=== PATIENT | male | born 1950 | race Caucasian/White ===

== ENCOUNTER 2020-01-07 07:38 | Outpatient (CLI) | payer MEDICARE, SELFPAY ==
--- NOTE | ~2020-01-07 | CT_ITS ---
EXAMINATION: CT chest abdomen pelvis w con EXAM DATE: 01/07/2020 08:28 INDICATION: Restaging melanoma. TECHNIQUE: Spiral CT of the chest, abdomen and pelvis was performed following intravenous injection o f 100 mL Omnipaque 350. Axial, coronal and sagittal images were reviewed. Coronal maximum intensity pixel images of chest reviewed. The dose-length product (DLP) for this examination was 1764.01 mGy- cm. The exposure was tailored according to patient size (auto mA exposure control), and iterative re construction (ASIR) was used as additional dose reduction technique. Comparison is made to prior exam ination from 10/27/2018. FINDINGS: CHEST: There are right axillary surgical clips from lymph node dissection. The lungs are clear. The re are no pleural or pericardial effusions. Tracheobronchial tree is patent. There is no mediasti nal, hilar or axillary lymphadenopathy. There is no pneumothorax. Heart normal in size. There i s mild coronary arterial calcification, arterial sclerosis. ABDOMEN PELVIS: There is mild hepatic steatosis without suspicious focal lesion identified. Spleen, a drenal glands, pancreas are unremarkable. Gallbladder is unremarkable. No biliary obstruction. Por romel and splenic veins are patent. Kidneys enhance symmetrically. There is no hydronephrosis. There is an exophytic cyst off the lower pole of the left kidney measuring 3.5 cm. The prostate is unremar kable. The bladder is unremarkable. There is no retroperitoneal or pelvic lymphadenopathy. There is mild scattered arteriosclerotic disease. Small left inguinal fat-containing hernia. The appendix is normal. The stomach and small bowel are unremarkable. There is moderate scattered co lonic diverticulosis. There is no adjacent inflammatory change to suggest diverticulitis. No free i ntraperitoneal gas. There are no osteoblastic or osteolytic lesions identified. Right humeral rotat or cuff repair. There is no significant interval change. IMPRESSION: 1. No evidence of malignancy. 2. Colonic diverticulosis. 3. Hepatic steatosis. Reviewed, dictated and finalized at location A.
[2020-01-07 08:17] LABS: Estimated Glomerular Filt Rate > 60
== END 2020-01-07 07:39 | disposition home or self-care (01) ==
LOC: ANHIMG 07:47
PROVIDERS: PCP Internal Medicine Medical Oncology; Visit Provider Internal Medicine Medical Oncology
DX: C43.59 Malignant melanoma of other part of trunk (principal); K57.90 Diverticulosis of intestine, part unspecified, without perforation or abscess without bleeding; K76.0 Fatty (change of) liver, not elsewhere classified
CPT/HCPCS: 36415; 71260; 74177; Q9967

== ENCOUNTER → 2020-03-28 15:10 | Outpatient (CLI) | payer MEDICARE, SELFPAY ==
--- NOTE | ~2020-03-28 | XR_ITS ---
XR ankle RT min 3V 03/28/2020 16:38 Indication: Right ankle pain Procedure: 4 views right ankle Comparison: No prior studies for comparison. Findings: No acute fracture or traumatic malalignment. Ankle mortise intact. There are prominent dege nerative calcaneal enthesophytes. 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 There are focal so ft tissue abnormality. No foreign bodies. Impression: 1: No acute fracture. Reviewed, dictated and finalized at location A. Impression: 1: No acute fracture.
== END ==
PROVIDERS: PCP Family Medicine; Visit Provider Family Medicine
DX: M25.571 Pain in right ankle and joints of right foot (principal)
CPT/HCPCS: 73610

== ENCOUNTER 2020-05-11 10:56 | Emergency (ER) | payer MEDICARE, SELFPAY ==
[2020-05-11] VITALS (11 sets, daily range): BP systolic 116–162; BP diastolic 57–93; PULSE 70–101; RESP 10–18; TEMP 37.3; O2SAT 93–98
--- NOTE | ~2020-05-11 | XR_ITS ---
XR chest 1V portable INDICATION: Redness of breath TECHNIQUE: 2 view chest. FINDINGS: Comparison to multiple prior studies sequentially, with oldest reviewed study dated 2005. There is mild bilateral interstitial prominence and peribronchial cuffing. There is no focal consoli dation, pleural effusion, or pneumothorax. The cardiomediastinal silhouette is normal.] IMPRESSION: 1. Findings most consistent with bronchiolitis versus an atypical or viral pneumonia. Reviewed, dictated and finalized at location A. IMPRESSION: 1. Findings most consistent with bronchiolitis versus an atypical or viral pne [facility].
--- NOTE | ~2020-05-11 | CT_ITS ---
EXAMINATION: CTA chest PE protocol DATE: 05/11/2020 14:20 INDICATION: Elevated d-dimer, pleuritic chest pain. Covid-positive patient. TECHNIQUE: Computed tomography angiography (CTA) of the chest was performed with 100 mL Omnipaque-350 intravenous contrast timed to evaluate the pulmonary arteries. Coronal maximum intensity projection 3D-reconstructions were created by the technologist. Automated exposure control and iterative reconst ruction technique were employed. Exam dose: 855.46 mGy-cm total exam DLP. COMPARISON: 01/19/2020 CT chest abdomen pelvis examination FINDINGS: There is diagnostic contrast enhancement the pulmonary stenosis of pulmonary embolism. No thoracic aortic aneurysm or dissection. Normal heart size. Coronary artery calcifications. No pericardial or pleural effusion. No hilar or mediastinal mass lesion or lymphadenopathy. There are scattered focal patchy areas of groundglass infiltrate involving the left upper lobe and el th lower lobes. The adrenal glands are normal. No suspicious osteolytic or osteoblastic lesions. There are degenerative changes of the cervical and thoracic spine. IMPRESSION: Patchy bilateral infiltrates No evidence of pulmonary embolism Reviewed, dictated and finalized at Location A. Reviewed, dictated and finalized at location A.
--- NOTE | 2020-05-11 11:11 | PC.NURSE ---
EKG done at 11:10 and shown to JEISON at 11:11
--- NOTE | 2020-05-11 11:13 | ECG_ITS ---
Measurements Intervals [place] Rate: 94 P: 49 [place]: 202 QRS: 22 QRSD: 85 T: 42 QT: 318 QTc: 398 Interpretive Statements SINUS RHYTHM DELAYED PRECORDIAL R/S TRANSITION CONSIDER INFERIOR INFARCT, AGE INDETERMINATE BASELINE ARTIFACT- I, III, AVL ABNORMAL ECG Electronically Signed On 05-11-2020 11:49:46 CDT by El Dumont D.O.
--- NOTE | 2020-05-11 11:13 | ED.SOB ---
HPI - SOB/Dyspnea General Chief Complaint: Shortness of Breath/Dyspnea Stated Complaint: COVID Positive, SOB Time Seen by Provider: 05/11/20 11:13 Source: patient Mode of arrival: wheelchair Limitations: no limitations History of Present Illness HPI Narrative: This is a 70-year-old male that presents the emergency department for an episode of lightheadedness today. Reports he was recently diagnosed with COVID. Reports he has had congestion, headache, fever, and cough. Reports his fevers had finally subsided. Today after breakfast when he went to walk up the steps he started to feel lightheaded. Reports pleuritic chest pain. Also reports mild shortness of breath. Denies lower extremity edema. Related Data Home Medications Medication Instructions Recorded Confirmed meloxicam 05/11/20 oxybutynin chloride mg PO 05/11/20 Allergies Allergy/AdvReac Type Severity Reaction Status Date / Time methocarbamol Allergy Severe SYNCOPE, Verified 05/11/20 11:20 RESPIRATORY DISTRESS naproxen Allergy Severe SYNCOPE, Verified 05/11/20 11:20 IN COMBINATION WITH METHOCARBAMOL nabumetone Allergy Unknown RASH Verified 05/11/20 11:20 Review of Systems Review of Systems: Narrative: CONSTITUTIONAL: Denies fever ENT: Reports rhinorrhea, congestion, sore throat CARDIOVASCULAR: Reports chest pain. Denies edema. RESPIRATORY: Reports cough and dyspnea. All systems reviewed & are unremarkable except as noted in HPI and below PMFSH Past Medical History Medical History (Updated 05/11/20 @ 15:45 by Bhumika Maya PA-C) History of malignant melanoma Overactive bladder Social History Social History (Updated 05/11/20 @ 11:58 by Bhumika Maya PA-C) Smoking status: Never smoker Gender identity (if verbalized by the patient): Male Exam Narrative: Exam Narrative: GENERAL: Well-appearing, well-nourished, and in no acute distress. HEAD: Normocephalic, atraumatic. EYES: PERRLA and EOMI. ENT: Nares clear, no rhinorrhea or epistaxis. Mucous membranes moist. Oropharynx without tonsillar hypertrophy exudate or other lesions. Bilateral TMs pearly linton non-bulging NECK: Supple. No adenopathy or masses. CHEST: Clear to auscultation. No respiratory distress. No wheezes rales or rhonchi HEART: Regular rate and rhythm. No murmur heard. Normal peripheral pulses. ABDOMEN: Soft, nontender, nondistended, normal active bowel sounds. EXTREMITIES: Normal range of motion. No edema. SKIN: Warm, dry, no rash. NEURO: No focal deficits. Alert and oriented x3. PSYCH: Normal mood and affect Course Vital Signs Vital signs: Vital Signs Pulse Rate 101 H 05/11/20 11:02 Respiratory Rate 15 05/11/20 11:02 Blood Pressure 162/93 H 05/11/20 11:02 Pulse Oximetry 97 05/11/20 11:02 Temperature 99.1 F 05/11/20 11:09 Pulse Rate 73 05/11/20 13:00 Respiratory Rate 11 L 05/11/20 13:00 Blood Pressure 136/85 05/11/20 14:34 Pulse Oximetry 93 05/11/20 14:34 MDM - SOB/Dyspnea MDM Narrative Medical decision making narrative: Patient presents to the emergency department for an episode of lightheadedness today. Recently had been diagnosed with coronavirus. Patient is afebrile and nontoxic-appearing. His vitals are stable. CBC and metabolic panel without concerning findings. Lactic acid is not elevated. CRP is normal. D-dimer was elevated so CTA of the chest was obtained. No evidence for pulmonary embolism. Patient does have patchy bilateral infiltrates. Patient cautiously hydrated and given Tylenol in the ED with improvement. Oxygen saturation has remained normal on room air. Patient is stable and felt appropriate for further outpatient evaluation. He was given warnings to return to the ER Lab Data Attestation: I reviewed the patient's lab results. Result diagrams: 05/11/20 12:01 05/11/20 12:01 Labs: Lab Results 05/11/20 05/11/20 05/11/20 Range/Units 12:01 12:0
[2020-05-11 12:10] LABS: Basophils Percent Auto 0.3 % (0.2-1.2); Eosinophils Percent Auto 0.3 % (0-4.4); Hematocrit 47.3 % (42.0-52.0); Hemoglobin 16.3 g/dL (14.0-18.0); Immature Granulocyte Absolute 0.01 K/mm3 (0.00-0.031); Immature Granulocyte Percent A 0.2 % (0-0.5); Lymphocytes Absolute Auto 2.15 K/mm3 (0.9-3.2); Lymphocytes Percent Auto 33.8 % (18.3-44.2); Mean Corpuscular HGB Conc 34.5 g/dl (32-36); Mean Corpuscular Hemoglobin 33.1 pg (26-34); Mean Corpuscular Volume 95.9 fl (80-100); Mean Platelet Volume 9.9 fl (7.4-10.4); Monocytes Absolute Auto 0.8 K/mm3 (0.1-0.6); Monocytes Percent Auto 12.9 % (2.6-8.5); Neutrophils Absolute Auto 3.4 K/mm3 (1.3-6.7); Neutrophils Percent Auto 52.5 % (45.5-73.1); Platelet Count Result 173 k/mm3 (150-375); Red Blood Count 4.93 M/mm3 (4.6-6.20); White Blood Count 6.4 K/mm3 (4.5-10.0)
[2020-05-11] MEDS: SODIUM CHLORIDE 0.9% IV 500 ML 999 ML IV CONT ×2 (12:16→14:37)
[2020-05-11 12:19] LABS: Prothrombin Time 12.6 Seconds (11.1-14.7)
[2020-05-11 12:20] LABS: Partial Thromboplastin Time 26.4 SECONDS (22.3-36.8)
[2020-05-11 12:22] LABS: D Dimer 0.56 ug/mL (<0.48); Lactic Acid Reflex 1.7 mmol/L (0.7-2.1)
[2020-05-11 12:23] LABS: Potassium 4.5 mmol/L (3.4-5.0)
[2020-05-11 12:28] LABS: Alanine Aminotransferase 61 U/L (4-50); Albumin Level 4.6 g/dL (3.5-5.1); Alkaline Phosphatase 45 U/L (38-126); Anion Gap 10 mmol/L (8-16); Aspartate Amino Transferase 38 U/L (17-59); Bilirubin,Total 0.5 mg/dL (0.2-1.3); Blood Urea Nitrogen 20 mg/dL (9-20); CRP 0.9 mg/dL (<1.0); Calcium 9.8 mg/dL (8.4-10.2); Carbon Dioxide 29 mmol/L (22-30); Chloride 98 mmol/L (98-107); Estimated CRCL calculation 79 ml/min; Estimated Glomerular Filt Rate > 60; Glucose 117 mg/dL (75-110); Lactate Dehydrogenase 452 U/L (313-618); Sodium 137 mmol/L (137-145)
[2020-05-11 12:35] LABS: NT Pro B Type Natriuretic Pept 21 PG/ML (5-100); Troponin I < 0.012 ng/mL (0.000-0.034)
[2020-05-11] MEDS: ONDANSETRON INJ 4 MG/2 ML VIAL IV PUSH (14:37)
[2020-05-11 15:47] LABS: Troponin I < 0.012 ng/mL (0.000-0.034)
--- NOTE | 2020-05-15 15:48 | PC.NURSE ---
LATE ENTRY This note is being entered to document information to the patient's record. The following information was omitted on 05/13/2020, by [id number] stopped at 1432 by this RN
== END 2020-05-11 16:25 | disposition home or self-care (01) ==
PROVIDERS: Physician Assistant; Emergency Provider Family Medicine; PCP Family Medicine
DX: U07.1 COVID-19 (principal); J12.89 Other viral pneumonia; Z85.820 Personal history of malignant melanoma of skin; N32.81 Overactive bladder; R06.02 Shortness of breath; R94.31 Abnormal electrocardiogram [ECG] [EKG]; Z85.72 Personal history of non-Hodgkin lymphomas
CPT/HCPCS: 36415; 71045; 71275; 80053; 82728; 83605; 83615; 83880; 84484; 85025; 85380; 85610; 85730; 86140; 93005; 96361; 96365; 96375; 99284; J0131; J2405; J7040; Q9967

== ENCOUNTER 2021-01-21 08:53 | Outpatient (CLI) | payer MEDICARE, SELFPAY ==
--- NOTE | ~2021-01-21 | CT_ITS ---
EXAMINATION: CT chest abdomen pelvis w con DATE: 01/21/2021 09:52 INDICATION: Melanoma restaging. TECHNIQUE: Computed tomography (CT) of the chest, abdomen, and pelvis was performed with 100 mL Omnip aque 350 intravenous contrast. Automated exposure control and iterative reconstruction technique were employed. The dose-length product was 1895.84 mGy-cm. COMPARISON: Chest CT 05/11/2020, CT chest, abdomen, and pelvis 01/07/2020 FINDINGS: CHEST CT: There is no pulmonary nodule or pleural effusion. The heart size is normal. There are coronary artery calcifications. No pericardial effusion. There are no pathologically enlarged lymph nodes. There are surgical clips in right axilla. There is a screw in right humerus. ABDOMEN/PELVIS CT: The liver, gallbladder, spleen, pancreas, adrenal glands, and right kidney are normal. There is a 3.9 cm cyst in left kidney. There are no dilated loops of bowel. There is diverticulosis of the colon wi thout evidence of diverticulitis. The appendix is normal. The prostate is mildly enlarged. There is a left inguinal hernia containing fat. There is severe lower lumbar spondylosis. IMPRESSION: 1. No evidence of malignancy. Reviewed, dictated and finalized at location A.
[2021-01-21 09:37] LABS: Estimated Glomerular Filt Rate > 60
== END 2021-01-21 08:54 | disposition home or self-care (01) ==
PROVIDERS: PCP Internal Medicine; Visit Provider Internal Medicine Medical Oncology
DX: C43.59 Malignant melanoma of other part of trunk (principal)
CPT/HCPCS: 71260; 74177; Q9967

== ENCOUNTER 2022-01-15 10:20 | Outpatient (CLI) | payer MEDICARE, SELFPAY ==
--- NOTE | ~2022-01-15 | CT_ITS ---
EXAMINATION: CT chest abdomen pelvis w con DATE: 01/15/2022 10:51 INDICATION: Malignant melanoma of torso; restaging TECHNIQUE: Computed tomography (CT) of the chest, abdomen, and pelvis was performed with 100 CC Omnip aque 300 intravenous contrast. Automated exposure control and iterative reconstruction technique were employed. Exam dose: 1633.40 mGy-cm total exam DLP. COMPARISON: 01/21/2021 CT chest abdomen pelvis FINDINGS: CHEST CT: No pulmonary consolidation. No pulmonary mass lesion. No hilar or mediastinal mass lesion or lymphadenopathy. No thoracic aortic aneurysm or dissection. Normal heart size. No pericardial or pleural effusion. Multiple surgical clips of right anterior chest wall and axilla. Screw in right humeral head. ABDOMEN/PELVIS CT: The liver, gallbladder, bile ducts, spleen, pancreas, pancreatic duct, adrenal glands and kidneys are unremarkable except for 3.7 cm lower pole left renal cyst. There is atherosclerotic calcification but normal caliber of the abdominal aorta. No intraperitoneal or retroperitoneal or pelvic mass lesion or adenopathy or ascites. Normal appendix. There are numerous diverticula of the colon; no evidence of diverticulitis. No bow el obstruction or intraperitoneal free air. Prostate enlargement and calcifications. Small fat containing left inguinal hernia. Small fat containing umbilical hernia. No suspicious osteolytic or osteoblastic lesions. IMPRESSION: No evidence of recurrent or metastatic disease Reviewed, dictated and finalized at Location A. Reviewed, dictated and finalized at location A.
[2022-01-15 10:46] LABS: Estimated Glomerular Filt Rate > 60
== END 2022-01-15 10:21 | disposition home or self-care (01) ==
PROVIDERS: PCP Internal Medicine; Visit Provider Internal Medicine Medical Oncology
DX: C43.59 Malignant melanoma of other part of trunk (principal); K40.90 Unilateral inguinal hernia, without obstruction or gangrene, not specified as recurrent; K42.9 Umbilical hernia without obstruction or gangrene; N40.0 Benign prostatic hyperplasia without lower urinary tract symptoms; I25.10 Atherosclerotic heart disease of native coronary artery without angina pectoris
CPT/HCPCS: 71260; 74177; Q9967

== ENCOUNTER 2022-02-11 09:35 | Outpatient (CLI) | payer MEDICARE, SELFPAY ==
--- NOTE | 2022-02-11 10:56 | ECG_ITS ---
Measurements Intervals [place] Rate: 52 P: 42 [place]: 230 QRS: 30 QRSD: 85 T: 22 QT: 410 QTc: 383 Interpretive Statements SINUS BRADYCARDIA WITH FIRST DEGREE AV BLOCK ABNORMAL ECG Electronically Signed On 02-11-2022 11:10:32 CDT by El Dumont D.O.
[2022-02-11 11:33] LABS: Basophils Absolute Auto 0.1 K/mm3 (0.0-0.1); Basophils Percent Auto 0.9 % (0.2-1.2); Eosinophils Absolute Auto 0.1 K/mm3 (0-0.3); Eosinophils Percent Auto 0.7 % (0-4.4); Hematocrit 41.9 % (42.0-52.0); Hemoglobin 13.7 g/dL (14.0-18.0); Immature Granulocyte Absolute 0.02 K/mm3 (0.00-0.031); Immature Granulocyte Percent A 0.3 % (0-0.5); Lymphocytes Absolute Auto 2.71 K/mm3 (0.9-3.2); Lymphocytes Percent Auto 39.2 % (18.3-44.2); Mean Corpuscular HGB Conc 32.7 g/dl (32-36); Mean Corpuscular Hemoglobin 32.5 pg (26-34); Mean Corpuscular Volume 99.3 fl (80-100); Mean Platelet Volume 10.1 fl (7.4-10.4); Monocytes Absolute Auto 0.7 K/mm3 (0.1-0.6); Monocytes Percent Auto 10.5 % (2.6-8.5); Neutrophils Absolute Auto 3.4 K/mm3 (1.3-6.7); Neutrophils Percent Auto 48.4 % (45.5-73.1); Platelet Count Result 206 k/mm3 (150-375); Red Blood Count 4.22 M/mm3 (4.6-6.20); Red Cell Distribution Width 12.5 % (11.5-14.5); White Blood Count 6.9 K/mm3 (4.5-10.0)
[2022-02-11 11:49] LABS: Albumin Level 4.5 g/dL (3.5-5.1); Anion Gap 5 mmol/L (8-16); Blood Urea Nitrogen 22 mg/dL (9-20); Calcium 9.1 mg/dL (8.4-10.2); Carbon Dioxide 27 mmol/L (22-30); Chloride 104 mmol/L (98-107); Estimated Glomerular Filt Rate > 60; Glucose 96 mg/dL (65-110); Potassium 4.4 mmol/L (3.4-5.0); Sodium 136 mmol/L (137-145)
[2022-02-11 12:34] LABS: Hemoglobin A1C 5.5 % (<5.7)
[2022-02-11 13:14] LABS: Urine Cotinine NEGATIVE
== END 2022-02-11 09:36 | disposition home or self-care (01) ==
LOC: ANHSURGERY 09:40
PROVIDERS: PCP Internal Medicine; Visit Provider Orthopaedic Surgery
DX: Z01.818 Encounter for other preprocedural examination (principal); M17.12 Unilateral primary osteoarthritis, left knee; R94.31 Abnormal electrocardiogram [ECG] [EKG]
CPT/HCPCS: 80048; 80307; 82040; 83036; 85025; 87070; 93005

== ENCOUNTER 2022-03-03 00:18 | Day surgery (SDC) | payer MEDICARE, SELFPAY ==
--- NOTE | 2022-02-11 10:10 | PC.NURSE ---
Addendum entered by Dipti Simpson RN 02/11/22 10:50: PT AWARE TO 20 OZ CLEAR LIQUID UP TO 0430 AM, AND NOT TO TAKE EYE GTTS DOS (PT TAKES @ NOC) Original Note: Report to the Outpatient Waiting Room, entrance under the green pavilion located off [facility], at time _0600_ on date _03/03/22_. OR Time: _0730_. - You and your visitor will be asked a series of questions to screen for COVID 19 for your protection. - Only one visitor is allowed at this time. - The patient visitor is requested to leave or wait in car when not with patient. - A mask is required within the hospital. Patients may have clear liquids (water, carbonated beverages, clear teas, apple juice) until 3 hours prior to surgery (0730 AM ) with a maximum of 20 ounces. - No food from midnight until time of surgery Take the following medications with a SIP of water the morning of surgery: _EYE DROPS_ Medications to discontinue per DR. HALLMAN - ALL ALEVE, VITAMINS AND SUPPLEMENTS 7 DAYS PRIOR TO SURGERY PT STATES, Date to take last dose 02/23/22__ Please no make-up, nail armenian, hairspray, perfume, deodorant, or body powder the day of surgery. No jewelry (including any body piercings) or valuables the day of surgery, leave them at home. Please take a shower or bath the night before, or the morning of, surgery with an antibacterial soap. Wear comfortable, loose fitting clothing. - Jewelry must be removed prior to entering the operating room. Rings and piercings that are not removed may be cut off. - The hospital will not accept responsibility for valuables. - Please leave all valuables, including medications, at home the day of surgery. If you are going home after surgery, a licensed sprinkler driver must drive you home. - NO public transportation without another adult. - We recommend that an adult stay with you for 24 hours following discharge. - We also recommend that you do not drive, make important decision, drink alcoholic beverages, or take any drugs that were not prescribed by your health care provider for at least 24 hours after your discharge time. Follow any additional instructions given to you from your surgeon. TOTAL JOINT CLASS SCHEDULED 02/17/22 @ 1000AM - [facility], USE MAIN ENTRANCE, LOWER LEVEL If you or anyone in your household have experienced Covid symptoms in the past week, please notify your surgeon or the nurse liaison at the phone number below for possible testing. Instructions given to ___PT and asked if any additional questions and then verbalized understanding. Patient advised to call surgeon office or pre surgery nurse liaison [phone] if any additional questions.
[2022-02-11 10:36] VITALS: BP 140/84; PULSE 56; RESP 20; TEMP 36.9; O2SAT 97; BMI 39.2
--- NOTE | 2022-03-02 12:04 | WPDANESEPPF ---
Anes - Initial Pre Proc Eval Procedure: Operation Date: 03/03/22 07:30 Proposed Procedures p Left Total Knee Arthroplasty - Rodolfo Flaherty MD Date/Time: 03/02/22 12:04 Surgeon: Rodolfo Flaherty MD Pre Op Diagnosis: O.A. Left Knee Patient Data Age: 72 Gender: M Height: 1.75 m Weight: 120.5 kg Last Vital Signs Temp 98.4 F 02/11/22 10:36 Pulse 56 L 02/11/22 10:36 Resp 20 02/11/22 10:36 BP 140/84 02/11/22 10:36 Pulse Ox 97 02/11/22 10:36 O2 Del Method Room Air 02/11/22 10:36 Allergies Allergy/AdvReac Type Severity Reaction Status Date / Time methocarbamol Allergy Severe SYNCOPE, Verified 03/03/22 05:58 RESPIRATORY DISTRESS Home Medications Medication Instructions Recorded Confirmed Type ascorbic acid (vitamin C) 1,000 mg 1 g PO DAILY 09/28/21 03/03/22 History tablet cartilage 40 mg-collagen II 10 1 tablet PO DAILY 09/28/21 03/03/22 History mg-boron 5 mg-hyaluronate 3.3 mg tablet ([employer]) cholecalciferol (vitamin D3) 125 125 mcg PO DAILY 09/28/21 03/03/22 History mcg (5,000 unit) capsule coenzyme Q10 200 mg/gram oral 200 mg PO DAILY 09/28/21 03/03/22 History powder (H2Q CoQ10) hctvmjklhbif-qwgybefv-mnruox tablet 1 tablet PO DAILY 09/28/21 03/03/22 History naproxen sodium 220 mg capsule 220 mg PO Q12H PRN Pain 09/28/21 03/03/22 History (Aleve) vit C 250 mg-vit E 90 mg-zinc 40 1 tablet PO DAILY 09/28/21 03/03/22 History mg-copper 1 yn-bohnnr-jizewq capsule (PreserVision AREDS-2) zinc acetate 50 mg (zinc) capsule 50 mg PO DAILY 09/28/21 03/03/22 History (Galzin) atorvastatin 20 mg tablet 20 mg PO QAM 02/11/22 03/03/22 History latanoprost 0.005 % eye drops 1 drp HS 02/11/22 03/03/22 History magnesium 200 mg tablet 400 mg PO DAILY 02/11/22 03/03/22 History Patient hx anesthesia problems: post op nausea/vomiting Family hx anesthesia problems: none Results Review: All pre-operative results and documents have been reviewed as part of the pre-operative evaluation. [facility], LAT[facility] Past Medical History Medical History (Updated 03/02/22 @ 12:04 by Tyrel Lopez MD) Arthritis COVID-19 History of malignant melanoma Hyperlipidemia Overactive bladder Social History Social History Smoking status: Never smoker Second hand tobacco smoke exposure: No Additional smoking assessment comments: PT DENIES ALL FORMS OF TOBACCO USE Alcohol intake: never Substance use: never Substance use type: does not use Living arrangements: with family Gender identity (if verbalized by the patient): Male Spiritual care concerns: No Anes - Eval Final PreProcedure Day of Procedure 03/02/22 12:04 Patient weight: obese Heart: regular rate and rhythm Lungs: clear to auscultation Airway: Mallampati scale class III Neurological: alert and oriented Last oral intake: >/= 8 hours ASA classification: III Emergent: no Anesthetic plan: proceed Anesthesia type and monitoring: general LMA and standard monitoring Results Review: All pre-operative results and documents have been reviewed as part of the pre-operative evaluation. Informed Consent: The patient's anesthetic plan and its attendant risks and benefits were discussed with the patient/family/POA. Questions were solicited and answers provided to the satisfaction of the patient/family/POA.
[2022-03-03] VITALS (14 sets, daily range): BP systolic 97–144; BP diastolic 54–88; PULSE 53–81; RESP 12–18; TEMP 36.4–37; O2SAT 98–100
--- NOTE | ~2022-03-03 | XR_ITS ---
EXAMINATION: XR knee LT 2V DATE: 03/03/2022 11:59 INDICATION: Left knee arthroplasty. Postop. TECHNIQUE: 2 views of left knee were obtained. COMPARISON: Left knee radiographs 01/12/2019 FINDINGS: There is a total left knee arthroplasty with patellar resurfacing in near-anatomic alignmen t. No fracture. There is gas in the knee joint and soft tissues, consistent with recent surgery. IMPRESSION: 1. Total left knee arthroplasty in near-anatomic alignment. Reviewed, dictated and finalized at location A.
[2022-03-03] MEDS: ACETAMINOPHEN 500 MG TABLET 1000 MG PO ×4 (06:03→23:57)
[2022-03-03] MEDS: LACTATED RINGERS 1,000 ML 30 ML IV CONT ×2 (06:39→11:41)
--- NOTE | 2022-03-03 06:56 | SUR.PREOP ---
Patient has an area left ankle that is reddened. Nofied Dr Flaherty. Says if it's not tender we will proceed. No tenderness to this area.
[2022-03-03] MEDS: TRANEXAMIC ACID 1,000MG/ISO100 1,000 MG/100 ML BAG 200 MG IVPB (06:59)
--- NOTE | 2022-03-03 07:19 | WPDHPUPDATE1 ---
History and Physical Update Update Date/Time: 03/03/22 07:19 History and Physical has been reviewed, including an updated exam of the patient. There are NO changes in the patient's condition. Risks, benefits, and alternatives have been discussed and questions answered. Patient agrees to proceed with procedure.Pt denies allery to Naprosyn(takes aleeve) or any other NSAID.
[2022-03-03] MEDS: ceFAZolin 3 GM/D5W 100 ML 100 ML IVPB (07:31)
[2022-03-03] MEDS: ceFAZolin SODIUM 1 GM VIAL 3 GM (08:27)
[2022-03-03] MEDS: GENTAMICIN BONE CEMENT REFOBACIN 1 EACH TOPICAL (09:15)
[2022-03-03] MEDS: ceFAZolin SODIUM 1 GM VIAL 2 GM IV PUSH (10:27)
[2022-03-03] MEDS: TRANEXAMIC ACID 1,000 MG/10 ML AMPUL 1000 MG IV PUSH (10:27)
[2022-03-03] MEDS: KETOROLAC 15 MG/ML VIAL (*BKC) IV PUSH (10:46)
--- NOTE | 2022-03-03 11:29 | W.PM.PROC2 ---
Procedure Note - Detailed Date of Procedure 03/03/22 Pre-op Diagnosis O.A. Left Knee Post-op Diagnosis Same Procedure Performed LEFT TOTAL KNEE REPLACEMENT Surgeon Rodolfo Flaherty MD [employer] Armida Davis Description of Procedure There was extra difficulty with the procedure because of his obesity with BMI of 38.7 which added approximately 45 minutes operating time to the procedure. Patient was brought to the operating room and general anesthesia was administered. He received 2 g of Ancef weight based vancomycin 1 g of tranexamic acid preoperatively. Left knee was prepped draped usual fashion. Under anesthesia he had approximately 7-10 degree flexion contracture. He had flexion 120. Limb was exsanguinated tourniquet elevated to 300 mmHg. A 7 in longitudinal midline incision was used a vastus medialis splitting approach utilized splitting the vastus medialis at the superior pole of the patella. Infrapatellar and suprapatellar fat pads were excised and a quadriceps synovectomy carried out. The patella was arthritic. It measured 23.5 mm diameter was cut to 15.5 mm. Bone quality was excellent. Protector cap applied. A guide sydney was inserted down the femoral canal after aspiration of canal contents using the 5 degree valgus cutting bushing 9 mm of bone removed off the distal femur. This removed equal amounts medially and laterally. Next the tibial plateau was cut. We attempted to make a skim cut off the low point medial tibial plateau given his minimal tibial slope posteriorly. This was performed. Meniscal remnants were excised the PCL was recessed. A conservative posterior capsule release was performed centrally at this time. Flexion gap was too tight medially and laterally measuring about 6 and 8 respectively at 90?. Therefore an additional 2 mm of bone removed the distal femur. With this the flexion gap medially was a tight 8 mm laterally tight 10 mm. A sizing guide was applied to the femur at 4? of external rotation which matched Whitesides line. Posterior referencing pinholes were placed and the size 6 7.5 cutting block applied AP and chamfer cuts were made. This was the appropriate size medial to lateral. The tibia was sized to a 75 [employer]. This was set at proper rotation and punched. On trialing flexion gap add appropriate stability with a 12 insert. With a 10 insert we had a slight flexion contracture but play medially laterally. Posterior femoral osteophyte medially had been removed earlier were there was a fairly significant accumulation of posterior bone proximal that medial femoral condyle and we performed a more thorough posterior capsular release this time. Additional 2 mm of bone removed the distal femur. Tourniquet was released at 90 minutes. Chamfer cuts were revisited. Posterior femoral bone proximal to the condylar portion of the trial was removed at this time. On trialing now with a 12 insert the knee had a barely positive bounce. There is 2 mm of medial and lateral opening in this position. There was appropriate stability in all positions. The trial implants removed and we carefully sought for additional retained tight posterior capsule and laterally there was a little bit more capsule released from the femur medial to the insertion of the lateral head of gastrocnemius tendon. We trialed again and this time the knee came out to full extension with negative bounce 2 mm medial and lateral opening again the lug holes were drilled in the femur. Patella was sized to a 34 thin lug holes drilled this restored composite thickness to 23.5 mm. Patellar tracking was central throughout range of motion. The limb was re-exsanguinated tourniquet elevated 3 0 mmHg. Step drill was 8 used to make multiple perforations throughout the tibial plateau and distal femur as is bone was quite dense the bony surfaces were very rarely irrigated and dried. Using 2 batches of methylmethacrylate 1 of the gentamicin powder the cement was immedi
[2022-03-03] MEDS: fentaNYL CITRATE INJ (*CRX) 100 MCG/2 ML VIAL 25 MCG IV PUSH ×4 (11:51→12:27)
--- NOTE | 2022-03-03 13:48 | ADMGEN ---
This patient, Jason Urbano, was admitted to Medical Room 246-01. Patient/family oriented to hospital policies and general routines including ID bracelet, bed and alarms, visiting hours, pain management, procedures, bathroom and other care routines, personal items, smoking policy, room service/diet, and visiting hours. Information on how to activate the Rapid Response Team has been discussed. Patient/Family are encouraged to report perceived risks to care and to ask questions if they do not understand what they are told or what they should do.
[2022-03-03] MEDS: SODIUM CHLORIDE 0.9% IV 1,000 ML 125 ML IV CONT (14:04)
[2022-03-03] MEDS: SENNA/DOCUSATE SODIUM TABLET 2 TAB PO (17:09)
[2022-03-03] MEDS: oxyCODONE HCL (*CRX) 5 MG TAB IR PO ×2 (17:10→21:29)
[2022-03-03] MEDS: LATANOPROST 0.005% OP SOLN 2.5 ML BTL 1 DROP EACH EYE (21:29)
--- NOTE | 2022-03-03 23:17 | PM.IMCN ---
Assessment and Plan Assessment and plan (1) Status post total left knee replacement: Onset Date: 03/03/22 Code(s): Z96.652 - Presence of left artificial knee joint Status: Acute (2) Obesity: Code(s): E66.9 - Obesity, unspecified Status: Acute Plan Patient is doing well postoperatively. Postop management per primary service. DVT prophylaxis per primary service. Patient does have chronic obesity but has been making good strides on weight loss through diet and he is hopeful that he will continue to lose weight now that he can be more active. Patient does have hyperlipidemia and history of malignant melanoma but these conditions are stable and require no active medical management inpatient. Patient is being continued on his home statin therapy. Hospitalist service will sign off. HPI Data of Consult Consult date: 03/03/22 Requesting Physician: Rodolfo Flaherty MD Primary Care Provider: Stanley Cotton DO Consult Narrative Narrative: Jason Urbano is a 72 year old male with a past medical history of obesity, stage III malignant melanoma, and hyperlipidemia who presented to hospital for planned left total knee arthroplasty. The patient reports he has been having pain in the left knee since proximally 2017. He was considering surgery for his knee in spring but did not have it performed due to COVID. Throughout that time. His functional status has progressively to declined despite other conservative measures. He opted for total knee arthroplasty. Postoperatively the patient has been up to the chair without difficulty. He reports minimal pain in his knee and states that he feels less pain postoperatively than he did preoperatively with movement. He states that he has lifted his leg from the bed without pain which is a significant improvement compared to baseline. He has been urinating without difficulty since surgery. He had no greater than expected blood loss intraoperatively. He denies any shortness of breath, chest pain or palpitations. Overall he feels well and is in jovial spirits. He reports that he has had difficulty with concentration and some memory decline since his interferon treatments for his malignant melanoma in 2011 which resulted in him retiring. He reports that his memory is been stable since that time. He does have chronic peripheral neuropathy as a result of his treatments. He has history of chronic obesity. He reports that his highest weight was 307. He has been eating the [facility] diet and is got down to his current weight. He is hopeful that since his knee pain has improved postoperatively that he will be able to take more weight off when he is discharged home. He does report a history of opiate induced constipation in the past. His last bowel movement was yesterday. Review of Systems Review of Systems: 12 systems were reviewed with pertinent positives and negatives per HPI. Except as documented in the HPI, all other systems were reviewed and are negative. 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 Hyperlipidemia Lymphedema of right upper extremity Due to axillary metastases Obesity Osteoarthritis of knee Overactive bladder Peripheral neuropathy due to chemotherapy Surgical History Surgical History (Updated 03/03/22 @ 23:31 by Radha Pat DO) History of arthroscopy of both knees History of carpal tunnel release Right History of circumcision (~2020) History of colonoscopy with polypectomy History of repair of left rotator cuff History of repair of right rotator cuff Status post total left knee replacement (03/03/22) Family History Family History Fat
[2022-03-04] MEDS: oxyCODONE HCL (*CRX) 5 MG TAB IR PO ×4 (00:36→12:18)
[2022-03-04 00:40] VITALS: BP 117/56; PULSE 58; RESP 18; TEMP 36.3; O2SAT 97
[2022-03-04 03:18] VITALS: BP 114/57; PULSE 67; RESP 18; TEMP 36.8; O2SAT 98
[2022-03-04] MEDS: ACETAMINOPHEN 500 MG TABLET 1000 MG PO ×2 (06:06→12:18)
[2022-03-04 06:37] LABS: Basophils Percent Auto 0.1 % (0.2-1.2); Hematocrit 37.1 % (42.0-52.0); Hemoglobin 12.3 g/dL (14.0-18.0); Immature Granulocyte Absolute 0.07 K/mm3 (0.00-0.031); Immature Granulocyte Percent A 0.5 % (0-0.5); Lymphocytes Absolute Auto 2.06 K/mm3 (0.9-3.2); Lymphocytes Percent Auto 13.3 % (18.3-44.2); Mean Corpuscular HGB Conc 33.2 g/dl (32-36); Mean Corpuscular Hemoglobin 33.2 pg (26-34); Mean Platelet Volume 10.6 fl (7.4-10.4); Monocytes Absolute Auto 1.8 K/mm3 (0.1-0.6); Monocytes Percent Auto 11.7 % (2.6-8.5); Neutrophils Absolute Auto 11.6 K/mm3 (1.3-6.7); Neutrophils Percent Auto 74.4 % (45.5-73.1); Platelet Count Result 196 k/mm3 (150-375); Red Blood Count 3.71 M/mm3 (4.6-6.20); Red Cell Distribution Width 12.2 % (11.5-14.5); White Blood Count 15.5 K/mm3 (4.5-10.0)
[2022-03-04 06:49] LABS: Anion Gap 8 mmol/L (8-16); Blood Urea Nitrogen 17 mg/dL (9-20); Calcium 9.1 mg/dL (8.4-10.2); Carbon Dioxide 24 mmol/L (22-30); Chloride 101 mmol/L (98-107); Estimated CRCL calculation 95 ml/min; Estimated Glomerular Filt Rate > 60; Glucose 133 mg/dL (65-110); Sodium 133 mmol/L (137-145)
--- NOTE | 2022-03-04 07:13 | PM.PNORT ---
Subjective Subjective Date/Time Seen: 03/04/22 07:13 postop day 1 patient is alert. Afebrile vital signs are stable. His soft tissue block wore off overnight he is having a little bit increased pain this morning. It is tolerable pain. He has been up to the restroom multiple times overnight. He was up in the chair this morning. His dressing is dry. Neurovascularly he is intact. Morning labs have been noted. Overall patient is doing well and stable. We will have him work with physical therapy today as well as this afternoon and if he continues to do well we will plan to discharge him home this afternoon after 2nd therapy session and as well as his antibiotics are done. Objective Data Vital Signs Vital Signs: Vital Signs - 24 hr 03/03/22 11:41 03/03/22 11:55 03/03/22 12:10 Temperature 37.0 C Pulse Rate 81 69 66 Respiratory Rate 12 15 17 Blood Pressure 133/73 117/88 131/63 Pulse Oximetry 99 100 100 Oxygen Delivery Simple Face Mask Simple Face Mask Simple Face Mask Oxygen Flow Rate 10 10 10 03/03/22 12:25 03/03/22 12:40 03/03/22 12:55 Temperature Pulse Rate 72 60 61 Respiratory Rate 16 14 16 Blood Pressure 144/69 H 126/66 135/66 Pulse Oximetry 99 100 99 Oxygen Delivery Room Air Room Air Room Air Oxygen Flow Rate 03/03/22 13:10 03/03/22 13:25 03/03/22 14:00 Temperature Pulse Rate 62 61 Respiratory Rate 18 15 Blood Pressure 124/74 124/77 Pulse Oximetry 99 100 Oxygen Delivery Room Air Room Air Room Air Oxygen Flow Rate 03/03/22 13:40 03/03/22 13:55 03/03/22 15:25 Temperature 36.5 C 36.5 C 36.6 C Pulse Rate 59 L 58 L 66 Respiratory Rate 14 16 16 Blood Pressure 97/60 L 131/72 128/71 Pulse Oximetry 100 98 98 Oxygen Delivery Oxygen Flow Rate 03/03/22 16:37 03/03/22 20:00 03/03/22 20:00 Temperature 36.4 C 36.8 C Pulse Rate 64 67 Respiratory Rate 18 18 Blood Pressure 134/87 135/54 L Pulse Oximetry 98 100 Oxygen Delivery Room Air Oxygen Flow Rate 03/04/22 00:40 03/04/22 03:18 Temperature 36.3 C L 36.8 C Pulse Rate 58 L 67 Respiratory Rate 18 18 Blood Pressure 117/56 L 114/57 L Pulse Oximetry 97 98 Oxygen Delivery Oxygen Flow Rate Intake/Output Intake/Output: Intake & Output 03/01/22 03/02/22 03/03/22 03/04/22 23:59 23:59 23:59 23:59 Intake Total 1640 100 Balance 1640 100 Meds/Results Medications: Active Medications Generic Name Dose Route Start Last Admin Trade Name Freq PRN Reason Stop Dose Admin Acetaminophen 1,000 mg 03/03/22 12:00 03/04/22 06:06 Acetaminophen 500 Mg Tablet PO 1,000 mg Q6HR ATILIO Administration Apixaban 2.5 mg 03/04/22 09:00 Apixaban 2.5 Mg Tablet PO Q12HR [facility] Ascorbic Acid 1,000 mg 03/04/22 09:00 Ascorbic Acid 500 Mg Tablet PO DAILY [facility] Atorvastatin Calcium 20 mg 03/04/22 09:00 Atorvastatin 20 Mg Tablet PO QAM [facility] Celecoxib 200 mg 03/04/22 08:00 Celecoxib 200 Mg Capsule PO DAILY@0800 [facility] Cephalexin HCl 500 mg 03/04/22 12:00 Cephalexin 500 Mg Capsule PO Q6HR [facility] Vancomycin HCl 1,000 mg in 250 mls @ 250 mls/hr 03/03/22 19:00 03/04/22 06:31 Vancomycin 1,000 Mg/D5w 250 Ml IVPB 03/04/22 07:59 250 mls/hr Q12H ATILIO Administration Cefazolin Sodium 1 gm in 50 mls @ 100 mls/hr 03/03/22 15:00 03/04/22 06:37 Ancef 1 Gm/D5w 50 Ml Pm IVPB 03/04/22 07:29 Infused Q8H [facility] Infusion Latanoprost 1 drop 03/03/22 21:00 03/03/22 21:29 Latanoprost 0.005% Op Soln 2.5 Ml Btl EACH EYE 1 drop HS ATILIO Administration Magnesium Oxide 400 mg 03/04/22 09:00 Magnesium Oxide 400 Mg Tablet PO DAILY [facility] Morphine Sulfate 2 mg 03/03/22 13:33 Morphine Sulfate (*Crx) 2 Mg/Ml Inj IV PUSH Q1H PRN Pain Rated 7-10 Naloxone HCl 0.1 mg 03/03/22 13:33 Naloxone Hcl 0.4 Mg/Ml Vial IV PUSH Q2M PRN Opiate Reversal Oxycodone HCl 5 mg 03/03/22 17:00 03/04/22 06:07 Oxycodone Hcl (*Crx) 5 Mg Tab Ir PO
--- NOTE | 2022-03-04 07:18 | PM.DS ---
DS: Admitting Diagnosis Discharge Date 03/04 Admitting Diagnosis Left knee DJD DS: Discharge Diagnosis Discharge Diagnosis Plan 72-year-old male who underwent left total knee arthroplasty on 03/03. Under with the procedure without complications. Postoperatively he has been afebrile vital signs are stable. Neurovascularly he is intact. He was up overnight today of surgery to the restroom multiple times. He is on scheduled Tylenol as well as oxycodone 5 mg pain control. He is also on Celebrex 200 mg once a day. Patient is weight-bearing as tolerated. He is going to work with physical therapy postop day 1 if he continues to be doing well he will be discharged home later that date on 03/04. Go home on a course of Keflex. He is also on Eliquis for DVT prophylaxis will also get MiraLax and Senokot for constipation. Patient was advised to keep leg elevated at home with foot higher than heart to prevent swelling in the knee but to do his exercises on an hourly basis. His outpatient therapy starting next Tuesday. Patient was also advised not to sit in the chair more than 30 minutes at a time 4 times a day. He was advised if he has any questions or concerns he is to call the office otherwise we will see him at his appointment dates. DS: Summary Hospital Course Hospital Course: Stable Time Spent with Patient Time attestation: Total time spent providing and/or coordinating discharge services: DS: Data Data Completed and Pending Labs on day of discharge: Labs from last 24 hours 03/04/22 03/04/22 03/03/22 05:40 05:40 06:25 WBC 15.5 H RBC 3.71 L Hgb 12.3 L Hct 37.1 L MCV 100.0 MCH 33.2 MCHC 33.2 RDW 12.2 Plt Count 196 MPV 10.6 H Immature Gran % (Auto) 0.5 Neut % (Auto) 74.4 H Lymph % (Auto) 13.3 L [place] % (Auto) 11.7 H Eos % (Auto) 0.0 Baso % (Auto) 0.1 L Lymph # (Auto) 2.06 [place] # (Auto) 1.8 H Eos # (Auto) 0.0 Baso # (Auto) 0.0 Abs Immat Gran (auto) 0.07 H Absolute Neuts (auto) 11.6 H Absolute Nucleated RBC 0.0 Nucleated RBC % 0.0 Sodium 133 L Potassium 4.0 Chloride 101 Carbon Dioxide 24 Anion Gap 8 BUN 17 Creatinine 0.80 Estim Creat Clear Calc 95 Estimated GFR > 60 Glucose 133 H Calcium 9.1 Blood Type A Positive Antibody Screen Negative Discharge Plan Discharge Patient Disposition: Home, Self-Care Discharge Instructions: RODOLFO FLAHERTY [facility], [place] [id number] [place] [id number] POST-OPERATIVE DISCHARGE INSTRUCTIONS TOTAL KNEE ARTHROPLASTY 1. When resting, lie on back with leg elevated above heart to minimize swelling. Significant swelling could indicate a blood clot and if this occurs call the office (or go to the ER) to have a venous ultrasound. 2. Do exercise 5 times a day. 3. Do not sit with leg down except for meals. Patient should limit sitting in the chair to 30 minutes at a time 4 times a day. 4. Wound Care: Nursing will give additional dressings at discharge. Patient to change dressing at home 1 week from surgery, then maintain until seen in office. 5. May shower with dressing in place. . Patient Instructions: Apixaban (By mouth) Follow-up/Referrals: Rodolfo Flaherty MD [Physician] - Keep Reg. Scheduled Appt. Discharge Medications: New celecoxib [Celebrex] 200 mg Capsule 200 mg PO DAILY@0800 Qty: 60 0RF polyethylene glycol 3350 [Miralax] 17 gram Powder In Packet 17 g PO QAM Qty: 30 0RF sennosides-docusate sodium [Senokot-S] 8.6-50 mg Tablet 2 tab PO BID Qty: 60 0RF acetaminophen 500 mg Tablet 1,000 mg PO Q6HR Qty: 90 0RF cephalexin 500 mg Capsule 500 mg PO Q6HR Qty: 48 0RF oxycodone 5 mg Tablet 5 mg PO Q4HR Qty: 40 0RF Eliquis 2.5 mg Tablet 2.5 mg PO Q12HR Qty: 27 0RF Continued Galzin 50 mg (zinc) capsule 50 mg PO DAILY H2Q CoQ10
[2022-03-04 08:00] VITALS: BP 118/68; PULSE 69; RESP 18; TEMP 36.8; O2SAT 98
[2022-03-04] MEDS: SENNA/DOCUSATE SODIUM TABLET 2 TAB PO (08:02)
[2022-03-04] MEDS: polyethylene glycoL 3350 17 GM POWD.PACK PO (08:02)
[2022-03-04] MEDS: ASCORBIC ACID 500 MG TABLET 1000 MG PO (08:02)
[2022-03-04] MEDS: ATORVASTATIN 20 MG TABLET PO (08:03)
[2022-03-04] MEDS: APIXABAN 2.5 MG TABLET PO (08:03)
[2022-03-04] MEDS: CELECOXIB 200 MG CAPSULE PO (08:03)
[2022-03-04] MEDS: MAGNESIUM OXIDE 400 MG TABLET PO (08:03)
[2022-03-04] MEDS: CHOLECALCIFEROL 1,000 UNITS TABLET 5000 UNITS PO (08:04)
--- NOTE | 2022-03-04 08:31 | PM.IMPN ---
Progress Note: A&P Assessment and Plan (1) Status post total left knee replacement: Onset Date: 03/03/22 Code(s): Z96.652 - Presence of left artificial knee joint Status: Acute (2) Obesity: Code(s): E66.9 - Obesity, unspecified Status: Acute Plan Patient is doing well postoperatively. Postop management per primary service. Eliquis for DVT prophylaxis. Continue PT/OT. Patient has BMI 38.7 who is hopeful to lose weight now that he can be more active. Patient has hyperlipidemia and atorvastatin has been resumed. Will follow along. Subjective Date/time seen: 03/04/22 08:31 Interval history: 72yo male with OA here for elective left TKA. Patient's pain is well controlled. He has been up walking to the bathroom. He denies any chest pain or shortness of breath. He slept well. Exam Narrative: AF 98.3 114/57 67 18 98% ra Gen - NARD Chest - CTA bilaterally, nml RR CV - RRR S1/S2 Abd - Soft, NT/ND, Positive BS Ext - left knee dressing clean/dry/intact. 2+ left DP Psych - Nml mood and affect Skin - Warm and dry Objective Data Vital Signs Vital Signs: Vital Signs - 24 hr 03/03/22 11:41 03/03/22 11:55 03/03/22 12:10 Temperature 98.6 F Pulse Rate 81 69 66 Respiratory Rate 12 15 17 Blood Pressure 133/73 117/88 131/63 Pulse Oximetry 99 100 100 Oxygen Delivery Simple Face Mask Simple Face Mask Simple Face Mask Oxygen Flow Rate 10 10 10 03/03/22 12:25 03/03/22 12:40 03/03/22 12:55 Temperature Pulse Rate 72 60 61 Respiratory Rate 16 14 16 Blood Pressure 144/69 H 126/66 135/66 Pulse Oximetry 99 100 99 Oxygen Delivery Room Air Room Air Room Air Oxygen Flow Rate 03/03/22 13:10 03/03/22 13:25 03/03/22 14:00 Temperature Pulse Rate 62 61 Respiratory Rate 18 15 Blood Pressure 124/74 124/77 Pulse Oximetry 99 100 Oxygen Delivery Room Air Room Air Room Air Oxygen Flow Rate 03/03/22 13:40 03/03/22 13:55 03/03/22 15:25 Temperature 97.7 F 97.7 F 98 F Pulse Rate 59 L 58 L 66 Respiratory Rate 14 16 16 Blood Pressure 97/60 L 131/72 128/71 Pulse Oximetry 100 98 98 Oxygen Delivery Oxygen Flow Rate 03/03/22 16:37 03/03/22 20:00 03/03/22 20:00 Temperature 97.6 F 98.2 F Pulse Rate 64 67 Respiratory Rate 18 18 Blood Pressure 134/87 135/54 L Pulse Oximetry 98 100 Oxygen Delivery Room Air Oxygen Flow Rate 03/04/22 00:40 03/04/22 03:18 Temperature 97.3 F L 98.3 F Pulse Rate 58 L 67 Respiratory Rate 18 18 Blood Pressure 117/56 L 114/57 L Pulse Oximetry 97 98 Oxygen Delivery Oxygen Flow Rate Intake/Output Intake/Output: Intake & Output 03/01/22 03/02/22 03/03/22 03/04/22 23:59 23:59 23:59 23:59 Intake Total 1640 100 Balance 1640 100 Meds/Results Medications: Active Medications Generic Name Dose Route Start Last Admin Trade Name Freq PRN Reason Stop Dose Admin Acetaminophen 1,000 mg 03/03/22 12:00 03/04/22 06:06 Acetaminophen 500 Mg Tablet PO 1,000 mg Q6HR ATILIO Administration Apixaban 2.5 mg 03/04/22 09:00 03/04/22 08:03 Apixaban 2.5 Mg Tablet PO 2.5 mg Q12HR ATILIO Administration Ascorbic Acid 1,000 mg 03/04/22 09:00 03/04/22 08:02 Ascorbic Acid 500 Mg Tablet PO 1,000 mg DAILY ATILIO Administration Atorvastatin Calcium 20 mg 03/04/22 09:00 03/04/22 08:03 Atorvastatin 20 Mg Tablet PO 20 mg QAM ATILIO Administration Celecoxib 200 mg 03/04/22 08:00 03/04/22 08:03 Celecoxib 200 Mg Capsule PO 200 mg DAILY@0800 ATILIO Administration Cephalexin HCl 500 mg 03/04/22 12:00 Cephalexin 500 Mg Capsule PO Q6HR [facility] Latanoprost 1 drop 03/03/22 21:00 03/03/22 21:29 Latanoprost 0.005% Op Soln 2.5 Ml Btl EACH EYE 1 drop HS ATILIO Administration Magnesium Oxide 400 mg 03/04/22 09:00 03/04/22 08:03 Magnesium Oxide 400 Mg Tablet PO 400 mg DAILY ATILIO Administration Morphine Sulfate 2 mg 03/03/22 13:33 Morphine Sulfate (*Crx) 2 Mg/Ml
[2022-03-04] MEDS: CEPHALEXIN 500 MG CAPSULE PO (12:18)
--- NOTE | 2022-03-04 14:18 | P.PNAN_ITS ---
Anes - Prog Note Post-Op Date/Time: 03/04/22 14:18 Cardiovascular status: normal Respiratory status: normal Airway patency: baseline Mental status: baseline Post-Op hydration status: normal Vital Signs: Last Vital Signs Temp 36.8 C 03/04/22 08:00 Pulse 69 03/04/22 08:00 Resp 18 03/04/22 08:00 BP 118/68 03/04/22 08:00 Pulse Ox 98 03/04/22 08:00 O2 Del Method Room Air 03/04/22 08:20 O2 Flow Rate 10 03/03/22 12:10 Pain Score (VAS): 08/10 I/O: Intake & Output 03/03/22 03/04/22 03/04/22 23:59 07:59 15:59 Intake Total 510 289 4004 Balance 859 993 6588 Laboratory Tests 03/04/22 05:40 03/04/22 05:40 03/04/22 03/04/22 05:40 05:40 WBC 15.5 H RBC 3.71 L Hgb 12.3 L Hct 37.1 L MCV 100.0 MCH 33.2 MCHC 33.2 RDW 12.2 Plt Count 196 MPV 10.6 H Immature Gran % (Auto) 0.5 Neut % (Auto) 74.4 H Lymph % (Auto) 13.3 L [place] % (Auto) 11.7 H Eos % (Auto) 0.0 Baso % (Auto) 0.1 L Lymph # (Auto) 2.06 [place] # (Auto) 1.8 H Eos # (Auto) 0.0 Baso # (Auto) 0.0 Abs Immat Gran (auto) 0.07 H Absolute Neuts (auto) 11.6 H Absolute Nucleated RBC 0.0 Nucleated RBC % 0.0 Sodium 133 L Potassium 4.0 Chloride 101 Carbon Dioxide 24 Anion Gap 8 BUN 17 Creatinine 0.80 Estim Creat Clear Calc 95 Estimated GFR > 60 Glucose 133 H Calcium 9.1 Post-procedural complaints: none Patient Feedback: Patient satisfied with anesthetic care.
== END 2022-03-04 14:18 | disposition home or self-care (01) ==
LOC: ANHSURGERY 05:47 → ANH2MED 13:35
PROVIDERS: PCP Internal Medicine; Visit Provider Orthopaedic Surgery
PROC: (CPT 27447; principal; 2022-03-03 07:30)
DX: M17.12 Unilateral primary osteoarthritis, left knee (principal); G89.18 Other acute postprocedural pain; E78.5 Hyperlipidemia, unspecified; E66.9 Obesity, unspecified; Z68.38 Body mass index [BMI] 38.0-38.9, adult
CPT/HCPCS: 27447; 36415; 73560; 80048; 85025; 86850; 86900; 86901; 97110; 97116; 97161; 97165; 97530; 97535; A9270; C1713; C1776; J0171; J0690; J1100; J1885; J2250; J2270; J2405; J2704; J2795; J3010; J3370; J7030; J7120

== ENCOUNTER 2022-04-14 16:42 | Observation (INO) | payer MEDICARE, SELFPAY ==
[2022-04-14] VITALS (12 sets, daily range): BP systolic 111–127; BP diastolic 62–91; PULSE 57–100; RESP 13–23; TEMP 36.8; O2SAT 96–100
--- NOTE | ~2022-04-14 | CT_ITS ---
EXAMINATION: CTA brain carotid DATE: 04/14/2022 22:36 INDICATION: persistent vertigo, r/o lvo TECHNIQUE: Computed tomographic angiography (CTA) of the head and neck was performed with 100 mL Omni paque-350 intravenous contrast. Automated exposure control and iterative reconstruction technique wer e employed. The dose-length product was 1171.60 mGy-cm. Maximum intensity projection and volume rende red 3D-reconstructions were created by the technologist on a separate workstation. COMPARISON: CT brain, same date. MRI brain and MRA brain/carotid 03/19/2016. FINDINGS: CTA HEAD: No large vessel occlusion, aneurysm, high flow vascular malformation, nidus or extravasation. Mild ca lcific plaque in the cavernous carotids bilaterally without significant stenosis. Mild irregularity o f the bilateral M1 segments, without significant stenosis. CTA NECK: Aortic arch and proximal great vessels: Minimal atherosclerotic calcifications at the visualized aort ic arch and proximal great vessels. Right common carotid, carotid bifurcation, and internal carotid artery: Calcified plaque at the bifur cation.There is 0% stenosis of the proximal right internal carotid artery relative to normal distal a rtery lumen diameter (NASCET criteria). Left common carotid, carotid bifurcation, and internal carotid artery: Calcified plaque at the bifurc ation.There is 0% stenosis of the proximal left internal carotid artery relative to normal distal art kemal lumen diameter (NASCET criteria). Vertebral arteries: No significant plaque or stenosis. Mild calcified plaque at the bilateral vertebr al artery origins. Other findings: 2 cm hypoenhancing nodule in the right thyroid gland. IMPRESSION: No acute large vessel infarct. No significant carotid or vertebral artery stenosis. 2 cm right inferi or thyroid nodule, consider outpatient thyroid ultrasound for further characterization. Reviewed, dictated and finalized at location K. IMPRESSION: No acute large vessel infarct. No significant carotid or vertebral artery steno sis. 2 cm right inferior thyroid nodule, consider outpatient thyroid ultrasound for further characterization.
--- NOTE | ~2022-04-14 | MR_ITS ---
EXAMINATION: MR brain/brain stem wo/w con DATE: 04/15/2022 09:17 INDICATION: Vertigo, aphasia, left lower extremity heaviness. TECHNIQUE: Magnetic resonance imaging (MRI) of the brain and brainstem was performed without and with 20 mL Multihance intravenous contrast. Sequences included sagittal and axial T1-weighted SE, axial d iffusion-weighted FS SE, axial T2*-weighted GRE, axial 3D SWAN, axial T2-weighted FLAIR, and axial T2 -weighted FSE. Postcontrast axial and coronal T1-weighted SE was obtained. Apparent diffusion coeffic ient (ADC) maps were created. COMPARISON: None. FINDINGS: There are no areas of restricted diffusion to suggest acute infarction. No intracranial hemorrhage or abnormal intracranial mass lesion. A few small foci of nonspecific increased T2-weighted signal inte nsity in the cerebral white matter, predominantly involving the deep and periventricular white matter which is within normal limits for age. There are no intraparenchymal signal abnormalities seen on th e other pulse sequences. The ventricles are symmetric and normal in size. There are no abnormal extra -axial fluid collections. Flow voids are seen in the cerebral arteries on the T2-weighted sequences c onsistent with their expected patency. Mild mucoperiosteal thickening the bilateral ethmoid sinuses. Visualized orbits and soft tissues are unremarkable. There are no areas of abnormal enhancement on th e post contrast images. IMPRESSION: 1. No acute intracranial process or abnormally enhancing brain lesions. 2. A few scattered small foci of nonspecific white matter T2 hyperintensity which is within normal li mits for age and likely sequela from chronic small vessel ischemic disease. Reviewed, dictated and finalized at location A. IMPRESSION: 1. No acute intracranial process or abnormally enhancing brain lesions. 2. A few scattered small foci of nonspecific white matter T2 hyperintensity whi ch is within normal limits for age and likely sequela from chronic small vessel ischemic disease.
--- NOTE | ~2022-04-14 | CT_ITS ---
EXAMINATION: CT brain wo con DATE: 04/14/2022 17:30 INDICATION: dizziness . TECHNIQUE: Computed tomography (CT) of the head was performed without intravenous contrast. The mA wa s adjusted according to patient size. Iterative reconstruction technique was employed. The dose-lengt h product was 605.33 mGy-cm. COMPARISON: 03/19/2016. FINDINGS: No acute intracranial hemorrhage or extra-axial fluid collection. No hydrocephalus, mass, or herniation. No acute ischemic infarct. Unremarkable dural venous sinus attenuation. No acute osseous abnormality. The aerated spaces are clear. Mild atrophy and chronic white matter disease. Atherosclerotic intracranial calcifications. IMPRESSION: No acute intracranial process. Reviewed, dictated and finalized at location K.
--- NOTE | ~2022-04-14 | XR_ITS ---
EXAMINATION: XR chest 1V Exam Date/Time: 04/14/2022 17:27 CDT HISTORY: r/o cva Comparison: None available. RESULT: Lines, tubes, and devices: Right humeral head soft tissue anchor with abnormal perihilar hardware boni cency. Multiple right axillary surgical clips. Lungs and pleura: Clear. Cardiomediastinal silhouette: Stable. Other: No acute osseous or upper abdominal finding. IMPRESSION: No acute cardiopulmonary process. Perihardware lucency about the soft tissue anchor in the proximal r ight humerus as can be seen with infection or loosening. Reviewed, dictated and finalized at location K. IMPRESSION: No acute cardiopulmonary process. Perihardware lucency about the soft tissue an chor in the proximal right humerus as can be seen with infection or loosening.
--- NOTE | 2022-04-14 16:54 | ECG_ITS ---
Measurements Intervals [place] Rate: 92 P: 44 NC: 236 QRS: 8 QRSD: 101 T: 32 QT: 341 QTc: 422 Interpretive Statements SINUS RHYTHM WITH SINUS ARRHYTHMIA WITH FIRST DEGREE AV BLOCK DELAYED PRECORDIAL R/S TRANSITION BASELINE ARTIFACT- II, III ABNORMAL ECG COMPARED TO ECG 02/11/2022 11:05:18 SINUS RHYTHM NOW PRESENT SINUS ARRHYTHMIA NOW PRESENT Electronically Signed On 04-14-2022 21:33:28 CDT by El Dum[place] D.O.
[2022-04-14 17:10] LABS: Glucose Point of Care 128 mg/dl (65-105)
[2022-04-14 17:22] LABS: Basophils Absolute Auto 0.1 K/mm3 (0.0-0.1); Basophils Percent Auto 0.7 % (0.2-1.2); Eosinophils Absolute Auto 0.1 K/mm3 (0-0.3); Eosinophils Percent Auto 1.4 % (0-4.4); Hematocrit 41.1 % (42.0-52.0); Hemoglobin 13.8 g/dL (14.0-18.0); Immature Granulocyte Absolute 0.03 K/mm3 (0.00-0.031); Immature Granulocyte Percent A 0.3 % (0-0.5); Lymphocytes Percent Auto 37.7 % (18.3-44.2); Mean Corpuscular HGB Conc 33.6 g/dl (32-36); Mean Corpuscular Hemoglobin 32.7 pg (26-34); Mean Corpuscular Volume 97.4 fl (80-100); Mean Platelet Volume 9.8 fl (7.4-10.4); Monocytes Absolute Auto 1.1 K/mm3 (0.1-0.6); Monocytes Percent Auto 11.2 % (2.6-8.5); Neutrophils Absolute Auto 4.7 K/mm3 (1.3-6.7); Neutrophils Percent Auto 48.7 % (45.5-73.1); Platelet Count Result 227 k/mm3 (150-375); Red Blood Count 4.22 M/mm3 (4.6-6.20); Red Cell Distribution Width 12.4 % (11.5-14.5); White Blood Count 9.6 K/mm3 (4.5-10.0)
[2022-04-14 17:32] LABS: Alanine Aminotransferase 25 U/L (6-50); Albumin Level 4.8 g/dL (3.5-5.1); Alkaline Phosphatase 48 U/L (38-126); Anion Gap 13 mmol/L (8-16); Aspartate Amino Transferase 24 U/L (17-59); Bilirubin,Total 0.4 mg/dL (0.2-1.3); Blood Urea Nitrogen 26 mg/dL (9-20); Calcium 9.3 mg/dL (8.4-10.2); Carbon Dioxide 24 mmol/L (22-30); Chloride 102 mmol/L (98-107); Estimated CRCL calculation 98 ml/min; Estimated Glomerular Filt Rate > 60; Glucose 126 mg/dL (65-110); Potassium 4.1 mmol/L (3.4-5.0); Prothrombin Time 12.7 Seconds (11.1-14.7); Sodium 139 mmol/L (137-145)
[2022-04-14 17:33] LABS: Partial Thromboplastin Time 26.3 SECONDS (22.3-36.8)
[2022-04-14 17:43] LABS: Troponin I < 0.012 ng/mL (0.000-0.034)
--- NOTE | 2022-04-14 18:24 | ED.DIZZY ---
HPI - Dizziness General Chief Complaint: Dizziness <TRI Huitron Last Filed: 04/15/22 02:14> Stated Complaint: dizziness, headache <TRI Huitron Last Filed: 04/15/22 02:14> Time Seen by Provider: 04/14/22 17:53 <TRI Huitron Last Filed: 04/15/22 02:14> Source: patient <TRI Huitron Last Filed: 04/15/22 02:14> Mode of arrival: ambulatory <TRI Huitron Last Filed: 04/15/22 02:14> Limitations: no limitations <TRI Huitron Last Filed: 04/15/22 02:14> History of Present Illness HPI Narrative: Patient is a 72-year-old male who presents to the ED with report of dizziness, described as the room is spinning. Patient reports that the dizziness began around 1130am this morning. He states the dizziness came on suddenly and has been intermittent since then, worse with walking, turning head left or right, laying flat. He has felt unsteady on his feet due to the dizziness, and also reports feeling like his left leg was somewhat asleep and he had mild aphasia, like he had difficulty finding his words at times. He also reports having nausea and a headache with the dizziness, but denies vomiting. Denies chest pain, difficulty breathing, vision changes, focal weakness of arm or leg, abdominal pain, cough, cold symptoms, ear pain, tinnitus. Patient had a left knee replacement 6 weeks ago. <TRI Huitron Last Filed: 04/15/22 02:14> Related Data Home Medications: Home Medications Medication Instructions Recorded Confirmed latanoprost 0.005 % eye drops 1 drp EACH EYE HS 02/11/22 04/15/22 naproxen sodium 220 mg capsule 220 mg PO Q12H PRN Pain (Scale 04/14/22 04/15/22 (Aleve) Score 4-6) acetaminophen 500 mg tablet 1,000 mg PO Q6HR PRN Pain (Scale 04/15/22 04/15/22 Score 1-3) oxycodone 5 mg tablet 5 mg PO Q4HR PRN Pain (Scale Score 04/15/22 04/15/22 7-10) <Danyelle Sutherland PA-C - Last Filed: 04/15/22 02:14> Allergies/Adverse Reactions: Allergies Allergy/AdvReac Type Severity Reaction Status Date / Time methocarbamol Allergy Severe SYNCOPE, Verified 03/03/22 13:44 RESPIRATORY DISTRESS <Danyelle Sutherland PA-C - Last Filed: 04/15/22 02:14> Review of Systems Review of Systems: CONSTITUTIONAL: Denies fever, chills, or sweats. EYES: Denies visual changes. ENT: Denies rhinorrhea, congestion, tinnitus, or otalgia. CARDIOVASCULAR: Denies chest pain, palpitations, or edema. RESPIRATORY: Denies cough or dyspnea. GASTROINTESTINAL: Reports nausea. Denies abdominal pain, vomiting, or diarrhea. NEUROLOGIC: Reports headache, dizziness, aphasia, LLE asleep. Denies numbness, focal weakness. 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
[2022-04-14] MEDS: MECLIZINE HCL 25 MG TABLET PO (19:51)
[2022-04-14] MEDS: ONDANSETRON INJ 4 MG/2 ML VIAL IV PUSH (19:51)
[2022-04-14] MEDS: SODIUM CHLORIDE 0.9% IV 1,000 ML 999 ML IV CONT (19:51)
--- NOTE | 2022-04-14 21:52 | PM.IMHP ---
H&P: HPI History of Present Illness Date/Time: 04/14/22 21:52 Chief Complaint: 72 years old male with past medical history of obesity osteoarthritis of the left knee status post arthroplasty on 03/03/2022 completed DVT prophylaxis history of malignant melanoma status post chemotherapy with complication of neuropathy presented to the hospital with dizziness started at 11:30 a.m. today associated with vertigo worsening with head movement improved with meclizine patient also complained of difficulty finding words resolved also has some weakness to the left leg at the ER CT scan of the head was negative neurology was consulted recommended MRI of the brain and CTA of the head patient will be admitted for further evaluation and treatment of probable TIA Review of Systems Review of Systems: 12 system review was done was negative except [facility] Past Medical History Medical History (Updated 04/14/22 @ 21:57 by Georgie Oliveira MD) COVID-19 (05/2020) Glaucoma History of malignant melanoma 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 Hyperlipidemia Lymphedema of right upper extremity Due to axillary metastases Obesity Osteoarthritis of knee Overactive bladder Peripheral neuropathy due to chemotherapy Surgical History Surgical History History of arthroscopy of both knees History of carpal tunnel release Right History of circumcision (~2020) History of colonoscopy with polypectomy History of repair of left rotator cuff History of repair of right rotator cuff Status post total left knee replacement (03/03/22) Family History Family History Father Dementia Mother Dementia Cerebrovascular accident Sibling Diabetes mellitus Melanoma Obesity Social History Social History Social History: Code status: Full code Surrogate decision maker: Smoking status: Never smoker Second hand tobacco smoke exposure: No Additional smoking assessment comments: He used to occasionally smoke a cigar when he served in the . Alcohol intake: former Alcohol use details: He binge drank for several years after he served in [employer] but has not done so since 1975. Substance use: never Additional living arrangements comments: Lives at home with his of 50 years. 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 Prior to working for [employer] he served in the [employer] for 8 years. He served during . Gender identity (if verbalized by the patient): Male Spiritual care concerns: No Meds Home Medications and Allergies Home Medications Medication Instructions Recorded Confirmed Type ascorbic acid (vitamin C) 1,000 mg 1 g PO DAILY 09/28/21 03/03/22 History tablet cholecalciferol (vitamin D3) 125 125 mcg PO DAILY 09/28/21 03/03/22 History mcg (5,000 unit) capsule coenzyme Q10 200 mg/gram oral 200 mg PO DAILY 09/28/21 03/03/22 History powder (H2Q CoQ10) vgjhriihfrwz-oqmekduz-nmyxsl tablet 1 tablet PO DAILY 09/28/21 03/03/22 History vit C 250 mg-vit E 90 mg-zinc 40 1 tablet PO DAILY 09/28/21 03/03/22 History mg-copper 1 ok-arccvi-amzvky capsule (PreserVision AREDS-2) zinc acetate 50 mg (zinc) capsule 50 mg PO DAILY 09/28/21 03/03/22 History (Galzin) latanoprost 0.005 % eye drops 1 drp HS 02/11/22 03/03/22 History magnesium 200 mg tablet 400 mg PO DAILY 02/11/22 03/03/22 History acetaminophen 500 mg tablet 1,000 mg PO Q6HR #90 tabs 03/04/22 Rx apixaban 2.5 mg tablet (Eliquis) 2.5 mg PO Q12HR #27 tabs 03/04/22 Rx celecoxib 200 mg capsule (Celebrex) 200 mg PO DAILY@0800 #60 caps 03/04/22 Rx cephalexin 500 mg capsule 500 mg PO Q6HR #48 caps 03/04/22 Rx oxycodone 5 mg tablet 5 mg PO Q4HR #40
[2022-04-14 23:16] LABS: Cholesterol 228 mg/dL (0-200); HDL Direct 63 mg/dL; Triglycerides 132 mg/dL (<150)
[2022-04-14 23:26] LABS: LDL Cholesterol Direct 126 mg/dL
[2022-04-14 23:33] LABS: Free T4 Free Thyroxine 1.07 ng/mL (0.78-2.19)
[2022-04-14] MEDS: SODIUM CHLORIDE 0.9% IV 1,000 ML 75 ML IV CONT (23:42)
[2022-04-14] MEDS: ASPIRIN 81 MG ENTERIC TABLET PO (23:42)
--- NOTE | 2022-04-14 23:57 | ADMGEN ---
This patient, Jason Urbano, was admitted to Medical Room 244-. Patient/family oriented to hospital policies and general routines including ID bracelet, bed and alarms, visiting hours, pain management, procedures, bathroom and other care routines, personal items, smoking policy, room service/diet, and visiting hours. Information on how to activate the Rapid Response Team has been discussed. Patient/Family are encouraged to report perceived risks to care and to ask questions if they do not understand what they are told or what they should do.
[2022-04-15] VITALS (16 sets, daily range): BP systolic 112–151; BP diastolic 64–84; PULSE 57–90; RESP 14–18; TEMP 36.5–37; O2SAT 98–100; BMI 36.0
--- NOTE | 2022-04-15 | ECHO_ITS ---
Patient Info Name: Jason Urbano Age: 72 years : 1950 Gender: Male Ht: 72 in Wt: 255 lbs BSA: 2.46 m2 HR: 63 bpm BP: 132 / 67 mmHg Heart Rhythm: Sinus Rhythm Exam Date: 04/15/2022 11:33 AM Exam Location: [facility] Patient Status: Inpatient Admit Date: 04/14/2022 Staff Ordering Physician: Georgie Oliveira M.A., MD [employer] Charcoal Burner: Palomo Alvarez RDCS, RT Attending Provider: Georgie Oliveira M.A., MD Referring Physician: Cayetano PRIEST; Exam Type: CA echo doppler color flow Study Info Indications I63.219 - Cerebral infarction due to unspecified occlusion or stenosis of unspecified vertebral arteries Complete two-dimensional, color flow and Doppler transthoracic echocardiogram is performed. Strain analysis performed. Summary 1. Complete two-dimensional, color flow and Doppler transthoracic echocardiogram is performed. 2. Left ventricular chamber dimension is normal. 3. Left ventricular systolic function is normal, estimated at 60-65%. 4. There is mildly increased left ventricular wall thickness. 5. The left ventricular diastolic function is grade I diastolic dysfunction. 6. Global longitudinal strain is mildly elevated at -17 %. 7. Recommend bubble study to assess for intracardiac shunt. 8. There is no aortic valve stenosis. 9. There is no mitral valve regurgitation. Left Ventricle Left ventricular chamber dimension is normal. Left ventricular systolic function is normal, estimated at 60-65%. There is mildly increased left ventricular wall thickness. The left ventricular diastolic function is grade I diastolic dysfunction. Global longitudinal strain is mildly elevated at -17 %. Right Ventricle Right ventricular chamber dimension is normal. Right ventricular systolic function is normal. Left Atria Left atrial chamber dimension is normal. Right Atria Right atrial chamber dimension is normal. Atrial Septum Recommend bubble study to assess for intracardiac shunt. Aortic Valve The aortic valve is not well visualized. There is no aortic valve stenosis. There is mild aortic valve regurgitation. Pulmonic Valve The pulmonic valve is not well visualized. Mitral Valve The mitral valve has normal leaflets. There is no mitral valve regurgitation. The mitral valve annulus is mildly calcified. Tricuspid Valve The tricuspid valve leaflets are not well visualized. There is trace tricuspid valve regurgitation. Unable to assess PA systolic pressure due to poor spectral resolution of tricuspid regurgitant jet velocity. Pericardium/Pleural The pericardium appears epicardial fat pad. There is trivial pericardial effusion. Inferior Vena Cava Normal inferior vena cava with >50% collapse upon inspiration consistent with normal right atrial pressure, 5 mmHg. Aorta The aortic root size at the sinus of Valsalva is normal. Left Ventricular Outflow Tract Name Value Normal LVOT 2D LVOT Diameter 2.1 cm LVOT Doppler LVOT Peak Gradient 4 mmHg LVOT Mean Gradient 2 mmHg LVOT VTI 21 cm
[2022-04-15 05:46] LABS: Basophils Absolute Auto 0.1 K/mm3 (0.0-0.1); Basophils Percent Auto 0.8 % (0.2-1.2); Eosinophils Absolute Auto 0.2 K/mm3 (0-0.3); Eosinophils Percent Auto 2.5 % (0-4.4); Hematocrit 39.2 % (42.0-52.0); Hemoglobin 12.8 g/dL (14.0-18.0); Immature Granulocyte Absolute 0.02 K/mm3 (0.00-0.031); Immature Granulocyte Percent A 0.3 % (0-0.5); Lymphocytes Absolute Auto 2.95 K/mm3 (0.9-3.2); Lymphocytes Percent Auto 38.6 % (18.3-44.2); Mean Corpuscular HGB Conc 32.7 g/dl (32-36); Mean Platelet Volume 9.8 fl (7.4-10.4); Monocytes Percent Auto 12.7 % (2.6-8.5); Neutrophils Absolute Auto 3.5 K/mm3 (1.3-6.7); Neutrophils Percent Auto 45.1 % (45.5-73.1); Platelet Count Result 209 k/mm3 (150-375); Red Cell Distribution Width 12.3 % (11.5-14.5); White Blood Count 7.7 K/mm3 (4.5-10.0)
[2022-04-15 08:36] LABS: Glucose Point of Care 115 mg/dl (65-105)
[2022-04-15] MEDS: ASPIRIN 81 MG ENTERIC TABLET PO (08:40)
[2022-04-15] MEDS: ATORVASTATIN 20 MG TABLET PO (08:40)
[2022-04-15] MEDS: ENOXAPARIN 40 MG/0.4 ML SYRINGE SUB-Q (08:40)
[2022-04-15 13:38] LABS: Anion Gap 11 mmol/L (8-16); Blood Urea Nitrogen 19 mg/dL (9-20); Calcium 9.5 mg/dL (8.4-10.2); Carbon Dioxide 24 mmol/L (22-30); Chloride 103 mmol/L (98-107); Estimated CRCL calculation 100 ml/min; Estimated Glomerular Filt Rate > 60; Glucose 125 mg/dL (65-110); Potassium 4.2 mmol/L (3.4-5.0); Sodium 138 mmol/L (137-145)
[2022-04-15 14:12] LABS: Magnesium 2.1 mg/dL (1.6-2.3)
[2022-04-15] MEDS: SODIUM CHLORIDE 0.9% IV 1,000 ML 75 ML IV CONT (14:32)
--- NOTE | 2022-04-15 15:19 | PM.IMPN ---
Progress Note: A&P Assessment and Plan (1) Vertigo: Code(s): R42 - Dizziness and giddiness Status: Acute Assessment and Plan: + dizziness and word finding prior to admission. dizziness is provoked by head turning or left lateral vision gaze. Continue work up to rule out TIA CT scan of the head negative CTa of the head and neck negative LVO, does show incidental thyroid nodule. Started on aspirin 81 mg daily and statin Continue permissive hypertension Check orthostatic vitals- continue IV fluids until obtained. Nursing bedside swallow performed and no s/s aspiration, per nursing. Neurology consulted and appreciate recommendations. TTE with bubble study pending. PRN meclizine 25 mg Q8 hours dizziness. PT/OT eval (2) Aphasia: Code(s): R47.01 - Aphasia Status: Acute Assessment and Plan: Intermittent, per patient, worse with episodes of dizziness. Continue management as above. (3) Peripheral neuropathy due to chemotherapy: Code(s): G62.0 - Drug-induced polyneuropathy; T45.1X5A - Adverse effect of antineoplastic and immunosuppressive drugs, initial encounter Status: Chronic Assessment and Plan: To be aware, chronic, followed by Neurology outpatient. (4) Hyperlipidemia: Qualifiers: Hyperlipidemia type: mixed hyperlipidemia Qualified Code(s): E78.2 - Mixed hyperlipidemia Code(s): E78.5 - Hyperlipidemia, unspecified Status: Chronic Assessment and Plan: LDL 126, HDL 63, Triglycerides 132. Heart healthy diet. Lipitor started (5) Thyroid nodule: Code(s): E04.1 - Nontoxic single thyroid nodule Status: Acute Assessment and Plan: Incidental finding 2 cm right inferior thyroid nodule. Discussed with patient and recommend outpatient US check TSH, free T4 1.08 Plan CODE STATUS: FULL CODE Disposition: home with spouse. Time Spent With Patient Time with patient: 15 - 25 minutes Subjective Date/time seen: 04/15/22 15:19 Exam Narrative: General:??? No acute distress.? Well-developed older adult male sitting up in the chair. HEENT:??? Normocephalic, atraumatic, PERRL, Sclera anicteric.? moist mucous membranes. Tongue midline. Good dentition. Neck:??Supple. Thyroid without nodularity. No JVD Respiratory:??Respirations are nonlabored.? Lung sounds? clear to auscultation bilaterally without adventitious breath sounds Cardiovascular:??Regular rate and rhythm with S1-S2. No murmurs, gallops or rubs. Gastrointestinal:??Abdomen soft, round, nontender to palpation. positive bowel sounds in all 4 quadrants. Skin:??Warm and dry.?complexion normal for ethnicity.? Fair turgor. Healed Left knee incision. Extremities:??No cyanosis or clubbing. Radial and pedal pulses? palpable and equal. grossly normal range of motion in all 4, slightly impaired extension/flexion left knee secondary to pain. No edema. Neurological:??Alert and oriented x4.? Cranial nerves 2-12 are grossly intact. Speech is clear and appropriate. no facial droop or pronator drift. Intact rapid alternating movements and finger to nose.?Slight impairment heel to mcbride left side due to left knee pain. Hand grasps and Dorsi/plantar flexion equal bilaterally.? no tremors or fasciculations Psychiatric:??Good eye contact.? Neutral mood and affect.? Cooperative with examination.? Pleasant Objective Data Vital Signs Vital Signs: Vital Signs - 24 hr 04/14/22 16:48 04/14/22 18:01 04/14/22 17:54 Temperature 98.2 F Pulse Rate 100 97 96 Respiratory Rate 16 15 Blood Pressure 127/81 Pulse Oximetry 100 98 Oxygen Delivery Room Air 04/14/22 18:00 04/14/22 21:01 04/14/22 22:12 Temperature Pulse Rate 95 62 63 Respiratory Rate 18 17 14 Blood Pressure 127/63 114/74 127/73 Pulse Oximetry 96 98 100 Oxygen Delivery 04/14/22 22:31 04/14/22 22:46 04/14/22 23:01 Temperature Pulse Rate 62 59 L 57 L Respiratory Rate 16 14 15 Bloo
--- NOTE | 2022-04-15 15:36 | WPDNEURCNPN ---
Consult date: 04/15/22 Time Seen: 11:30 HPI: Jason Urbano is a 72 year old male admitted to the hospital through the emergency room for the complaints of dizziness particularly explanation that the room is spinning since 11:30 a.m. starting suddenly but with intermittent sensation as such worse with walking turning head left or right or lying flat in the bed also he felt his left lower extremity were asleep and he had some difficulties in speech that is difficulties in finding the right words patient has had left knee replacement about 6 weeks ago and has been taking only pain medication at home as an outpatient , is reportedly allergic to methocarbamol and past history is consistent with the malignant melanoma in stage III with axillary Dumont stasis though currently in remission, overactive bladder and peripheral neuropathy due to chemotherapy in addition bilateral rotator cuff repair, initial physical exam in the emergency room was stable with no focal neurological deficit CT scan of the head was obtained which was negative he fell better with the intravenous fluids his vital signs were stable was admitted to the hospital for further evaluation, was started on aspirin CTA was still pending Review of Systems Review of Systems: All systems reviewed & are unremarkable except as noted in HPI and below PMFSH Past Medical History Medical History COVID-19 (05/2020) Glaucoma History of malignant melanoma 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 Hyperlipidemia Lymphedema of right upper extremity Due to axillary metastases Obesity Osteoarthritis of knee Overactive bladder Peripheral neuropathy due to chemotherapy Surgical History Surgical History History of arthroscopy of both knees History of carpal tunnel release Right History of circumcision (~2020) History of colonoscopy with polypectomy History of repair of left rotator cuff History of repair of right rotator cuff Status post total left knee replacement (03/03/22) Family History Family History Father Dementia Mother Dementia Cerebrovascular accident Sibling Diabetes mellitus Melanoma Obesity Social History Social History Social History: Code status: Full code Surrogate decision maker: Smoking status: Never smoker Second hand tobacco smoke exposure: No Additional smoking assessment comments: He used to occasionally smoke a cigar when he served in the . Alcohol intake: never Alcohol use details: He binge drank for several years after he served in [employer] but has not done so since 1975. Substance use: never Substance use type: does not use Additional living arrangements comments: Lives at home with his of 50 years. 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 Prior to working for [employer] he served in the [employer] for 8 years. He served during . Gender identity (if verbalized by the patient): Male Spiritual care concerns: No Meds Home Medications and Allergies Home Medications Medication Instructions Recorded Confirmed Type latanoprost 0.005 % eye drops 1 drp EACH EYE HS 02/11/22 04/15/22 History naproxen sodium 220 mg capsule 220 mg PO Q12H PRN Pain (Scale 04/14/22 04/15/22 History (Aleve) Score 4-6) acetaminophen 500 mg tablet 1,000 mg PO Q6HR PRN Pain (Scale 04/15/22 04/15/22 History Score 1-3) oxycodone 5 mg tablet 5 mg PO Q4HR PRN Pain (Scale Score 04/15/22 04/15/22 History 7-10) Allergies Allergy/AdvReac Type Severity Reaction Status Date / Time methocarbamol Allergy Severe SYNCOPE, Verified 03/03/22 13:44 RESPIRATORY DISTRESS
[2022-04-15] MEDS: MECLIZINE HCL 25 MG TABLET PO (16:37)
[2022-04-15] MEDS: LATANOPROST 0.005% OP SOLN 2.5 ML BTL 1 DROP EACH EYE (20:36)
[2022-04-16] VITALS: PULSE 63
[2022-04-16] MEDS: MECLIZINE HCL 25 MG TABLET PO (00:35)
[2022-04-16 04:00] VITALS: PULSE 77
[2022-04-16] MEDS: SODIUM CHLORIDE 0.9% IV 1,000 ML 75 ML IV CONT (04:00)
[2022-04-16 05:40] VITALS: BP 122/75; PULSE 60; RESP 16; TEMP 36.7; O2SAT 99
--- NOTE | 2022-04-16 06:19 | P.PNIM_ITS ---
Progress Note: A&P Assessment and Plan (1) Vertigo: Code(s): R42 - Dizziness and giddiness Status: Acute Assessment and Plan: * dizziness and word finding prior to admission * Dizziness is provoked by head turning or left lateral vision gaze. * CT scan of the head negative * CTA of the head and neck negative LVO, does show incidental thyroid nodule. * Started on aspirin 81 mg daily and statin * Check orthostatic vitals laying 123/64, Sitting 134/75, Standing 144/68 * Nursing bedside swallow performed and no s/s aspiration, per nursing. * Neurology consulted and appreciate recommendations. * TTE with bubble study EF of 60-65% with grade 1 diastolic dysfunction * PRN meclizine 25 mg Q8 hours dizziness. * PT/OT eval (2) Aphasia: Code(s): R47.01 - Aphasia Status: Acute Assessment and Plan: * Intermittent, per patient, worse with episodes of dizziness. * Continue management as above. (3) Peripheral neuropathy due to chemotherapy: Code(s): G62.0 - Drug-induced polyneuropathy; T45.1X5A - Adverse effect of antineoplastic and immunosuppressive drugs, initial encounter Status: Chronic Assessment and Plan: * Complaints of neuropathy through dizziness * Consider gabapentin (4) Hyperlipidemia: Qualifiers: Hyperlipidemia type: mixed hyperlipidemia Qualified Code(s): E78.2 - Mixed hyperlipidemia Code(s): E78.5 - Hyperlipidemia, unspecified Status: Chronic Assessment and Plan: * LDL 126, HDL 63, Triglycerides 132. * Heart healthy diet. * Lipitor 40mg PO daily (5) Thyroid nodule: Code(s): E04.1 - Nontoxic single thyroid nodule Status: Acute Assessment and Plan: * Incidental finding 2 cm right inferior thyroid nodule. * Discussed with patient and recommend outpatient US * TSH 1.780, free T4 1.08 Time Spent With Patient Time with patient: Greater than 35 minutes Subjective Date/time seen: 04/16/22 06:19 Interval history: 04/16/22 04/14/22? 21:52 ?72 years old male with past medical history of obesity osteoarthritis of the left knee status post arthroplasty on 03/03/2022 completed DVT prophylaxis? history of malignant melanoma status post chemotherapy with complication of neuropathy presented to the hospital with dizziness started at 11:30 a.m. today associated with vertigo worsening with head movement improved with meclizine patient also complained of? difficulty finding words resolved also has some weakness to the left leg at the ER CT scan of the head was negative neurology was consulted recommended MRI of the brain and CTA of the head patient will be admitted for further evaluation and treatment of probable TIA Review of Systems Review of Systems: All systems reviewed & are unremarkable except as noted in HPI and below Exam Const: General: cooperative, healthy appearing, no acute distress, well developed, alert and awake Nutritional Appearance: well nourished Orientation/consciousness: patient oriented x3 Limitations: no limitations HENMT: Head: normal to inspection Ears: hearing grossly normal bilaterally General nose exam: Normal external nose present Mouth: Yes Normal oral and palatal mucosa present, Yes lip normal and Yes tongue normal Teeth and gingiva: abnormal tooth and associated gingiva and poor dentition Eyes: General: appearance normal, both eyes and all related structures Neck: Neck: normal visual in
--- NOTE | 2022-04-16 06:19 | PM.IMPN ---
Progress Note: A&P Assessment and Plan (1) Vertigo: Code(s): R42 - Dizziness and giddiness Status: Acute Assessment and Plan: dizziness and word finding prior to admission Dizziness is provoked by head turning or left lateral vision gaze. CT scan of the head negative CTA of the head and neck negative LVO, does show incidental thyroid nodule. Started on aspirin 81 mg daily and statin Check orthostatic vitals laying 123/64, Sitting 134/75, Standing 144/68 Nursing bedside swallow performed and no s/s aspiration, per nursing. Neurology consulted and appreciate recommendations. TTE with bubble study EF of 60-65% with grade 1 diastolic dysfunction PRN meclizine 25 mg Q8 hours dizziness. PT/OT eval (2) Aphasia: Code(s): R47.01 - Aphasia Status: Acute Assessment and Plan: Intermittent, per patient, worse with episodes of dizziness. Continue management as above. (3) Peripheral neuropathy due to chemotherapy: Code(s): G62.0 - Drug-induced polyneuropathy; T45.1X5A - Adverse effect of antineoplastic and immunosuppressive drugs, initial encounter Status: Chronic Assessment and Plan: Complaints of neuropathy through dizziness Consider gabapentin (4) Hyperlipidemia: Qualifiers: Hyperlipidemia type: mixed hyperlipidemia Qualified Code(s): E78.2 - Mixed hyperlipidemia Code(s): E78.5 - Hyperlipidemia, unspecified Status: Chronic Assessment and Plan: LDL 126, HDL 63, Triglycerides 132. Heart healthy diet. Lipitor 40mg PO daily (5) Thyroid nodule: Code(s): E04.1 - Nontoxic single thyroid nodule Status: Acute Assessment and Plan: Incidental finding 2 cm right inferior thyroid nodule. Discussed with patient and recommend outpatient US TSH 1.780, free T4 1.08 Time Spent With Patient Time with patient: Greater than 35 minutes Subjective Date/time seen: 04/16/22 06:19 Interval history: 04/16/22 04/14/22? 21:52 ?72 years old male with past medical history of obesity osteoarthritis of the left knee status post arthroplasty on 03/03/2022 completed DVT prophylaxis? history of malignant melanoma status post chemotherapy with complication of neuropathy presented to the hospital with dizziness started at 11:30 a.m. today associated with vertigo worsening with head movement improved with meclizine patient also complained of? difficulty finding words resolved also has some weakness to the left leg at the ER CT scan of the head was negative neurology was consulted recommended MRI of the brain and CTA of the head patient will be admitted for further evaluation and treatment of probable TIA Review of Systems Review of Systems: All systems reviewed & are unremarkable except as noted in HPI and below Exam Const: General: cooperative, healthy appearing, no acute distress, well developed, alert and awake Nutritional Appearance: well nourished Orientation/consciousness: patient oriented x3 Limitations: no limitations HENMT: Head: normal to inspection Ears: hearing grossly normal bilaterally General nose exam: Normal external nose present Mouth: Yes Normal oral and palatal mucosa present, Yes lip normal and Yes tongue normal Teeth and gingiva: abnormal tooth and associated gingiva and poor dentition Eyes: General: appearance normal, both eyes and all related structures Neck: Neck: normal visual inspection, full ROM, trachea midline and supple Chest: Chest palpation & inspection: normal inspection of the chest Resp: Effort & Inspection: normal respiratory effort and able to speak in complete sentences Auscultation: clear to auscultation bilaterally Cardio: Jugular venous distension: no JVD Rate: regular rate Rhythm: regular rhythm Heart sounds: S1 normal heart sound present and S2 normal heart sound present Peripheral pulses: Peripheral pulses 2+ throughout GI: Inspecti
[2022-04-16 08:00] VITALS: PULSE 62
[2022-04-16 08:04] LABS: Basophils Absolute Auto 0.1 K/mm3 (0.0-0.1); Basophils Percent Auto 0.8 % (0.2-1.2); Eosinophils Absolute Auto 0.2 K/mm3 (0-0.3); Eosinophils Percent Auto 2.4 % (0-4.4); Hematocrit 41.3 % (42.0-52.0); Hemoglobin 13.6 g/dL (14.0-18.0); Immature Granulocyte Absolute 0.01 K/mm3 (0.00-0.031); Immature Granulocyte Percent A 0.2 % (0-0.5); Lymphocytes Absolute Auto 2.54 K/mm3 (0.9-3.2); Lymphocytes Percent Auto 38.6 % (18.3-44.2); Mean Corpuscular HGB Conc 32.9 g/dl (32-36); Mean Corpuscular Hemoglobin 32.6 pg (26-34); Mean Platelet Volume 9.4 fl (7.4-10.4); Monocytes Absolute Auto 0.6 K/mm3 (0.1-0.6); Monocytes Percent Auto 8.8 % (2.6-8.5); Neutrophils Absolute Auto 3.2 K/mm3 (1.3-6.7); Neutrophils Percent Auto 49.2 % (45.5-73.1); Platelet Count Result 216 k/mm3 (150-375); Red Blood Count 4.17 M/mm3 (4.6-6.20); Red Cell Distribution Width 12.4 % (11.5-14.5); White Blood Count 6.6 K/mm3 (4.5-10.0)
[2022-04-16 08:34] LABS: Alanine Aminotransferase 24 U/L (6-50); Albumin Level 4.5 g/dL (3.5-5.1); Alkaline Phosphatase 50 U/L (38-126); Anion Gap 11 mmol/L (8-16); Aspartate Amino Transferase 22 U/L (17-59); Bilirubin,Total 0.9 mg/dL (0.2-1.3); Blood Urea Nitrogen 14 mg/dL (9-20); Calcium 9.2 mg/dL (8.4-10.2); Carbon Dioxide 28 mmol/L (22-30); Chloride 101 mmol/L (98-107); Estimated CRCL calculation 90 ml/min; Estimated Glomerular Filt Rate > 60; Glucose 98 mg/dL (65-110); Potassium 4.2 mmol/L (3.4-5.0); Sodium 140 mmol/L (137-145)
[2022-04-16] MEDS: ATORVASTATIN 40 MG TABLET PO (09:33)
[2022-04-16] MEDS: ASPIRIN 81 MG ENTERIC TABLET PO (09:33)
[2022-04-16] MEDS: ENOXAPARIN 40 MG/0.4 ML SYRINGE SUB-Q (09:34)
--- NOTE | 2022-04-16 11:45 | PM.DS ---
DS: Admitting Diagnosis Discharge Date 04/16/22 1145 Admitting Diagnosis Vertigo DS: Discharge Diagnosis Discharge Diagnosis (1) Vertigo: Code(s): R42 - Dizziness and giddiness Status: Acute Assessment and Plan: dizziness and word finding prior to admission Dizziness is provoked by head turning or left lateral vision gaze. CT scan of the head negative CTA of the head and neck negative LVO, does show incidental thyroid nodule. Started on aspirin 81 mg daily and statin Check orthostatic vitals laying 123/64, Sitting 134/75, Standing 144/68 Nursing bedside swallow performed and no s/s aspiration, per nursing. Neurology consulted and appreciate recommendations. TTE with bubble study EF of 60-65% with grade 1 diastolic dysfunction PRN meclizine 25 mg Q8 hours dizziness. PT/OT eval (2) Aphasia: Code(s): R47.01 - Aphasia Status: Acute Assessment and Plan: Intermittent, per patient, worse with episodes of dizziness. Continue management as above. (3) Peripheral neuropathy due to chemotherapy: Code(s): G62.0 - Drug-induced polyneuropathy; T45.1X5A - Adverse effect of antineoplastic and immunosuppressive drugs, initial encounter Status: Chronic Assessment and Plan: Complaints of neuropathy through dizziness Consider gabapentin (4) Hyperlipidemia: Qualifiers: Hyperlipidemia type: mixed hyperlipidemia Qualified Code(s): E78.2 - Mixed hyperlipidemia Code(s): E78.5 - Hyperlipidemia, unspecified Status: Chronic Assessment and Plan: LDL 126, HDL 63, Triglycerides 132. Heart healthy diet. Lipitor 40mg PO daily (5) Thyroid nodule: Code(s): E04.1 - Nontoxic single thyroid nodule Status: Acute Assessment and Plan: Incidental finding 2 cm right inferior thyroid nodule. Discussed with patient and recommend outpatient US TSH 1.780, free T4 1.08 DS: Summary Hospital Course Hospital Course: Patient is a 72 year old male with a past medical history of glaucoma, HLD, peripheral neuropathy who presented to the ED with dizziness. Patient was given meclizine and fluids. CVA/TIA workup was performed which all came back negative at this time. CTA of the head and neck was <50% stenosis bilaterally. There was a nodule that was found on the CT. He was started on a daily aspirin and statin. Orthostatic blood pressures were obtained which did not show any hypotension. Neurology was consulted. Brain MRI was performed and came back negative for stroke. He stated that he is feeling better today. He denies any dizziness weakness, fatigue. He has been getting up walking around. He denies any further nausea. He did state that he was having some problems with constipation, however, he has been taking a lot of pain medications. However, he was able to have a BM today. He denies any chest pain, shortness of breath, nausea, vomiting, diarrhea, weakness or fatigue. Called to make an appointment to Dr. Cotton, which was not able to be obtained any earlier than what is scheduled. The office did state that they will send a referral to Dr. Burks. He has been educated about the next steps of the care plan. He verbalized understanding. Status at Discharge Functional status at discharge: independent ambulation Overall status at discharge: patient is progressing back to baseline Time Spent with Patient Time attestation: Total time spent providing and/or coordinating discharge services: 37 minutes Time spent: Greater than 30 minutes Specific discharge activities: Diagnostic testing, chart review, developing a treatment plan, education, care coordination documentation, physical exam, result review Exam Const: General: cooperative, healthy appearing, no acute distress, well developed, alert and awake Nutritional Appearance: well nourished Orientation/consciousness: patient oriented x3 Limitation
[2022-04-16 12:00] VITALS: PULSE 77
--- NOTE | 2022-04-16 13:35 | WPDNEURCNPN ---
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 Hyperlipidemia Lymphedema of right upper extremity Due to axillary metastases Obesity Osteoarthritis of knee Overactive bladder Peripheral neuropathy due to chemotherapy Surgical History Surgical History History of arthroscopy of both knees History of carpal tunnel release Right History of circumcision (~2020) History of colonoscopy with polypectomy History of repair of left rotator cuff History of repair of right rotator cuff Status post total left knee replacement (03/03/22) Family History Family History Father Dementia Mother Dementia Cerebrovascular accident Sibling Diabetes mellitus Melanoma Obesity Social History Social History Social History: Code status: Full code Surrogate decision maker: Smoking status: Never smoker Second hand tobacco smoke exposure: No Additional smoking assessment comments: He used to occasionally smoke a cigar when he served in the [employer]. Alcohol intake: never Alcohol use details: He binge drank for several years after he served in [email or web address] but has not done so since 1975. Substance use: never Substance use type: does not use Additional living arrangements comments: Lives at home with his of 50 years. 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 Prior to working for [employer] he served in the [employer] for 8 years. He served during . Gender identity (if verbalized by the patient): Male Spiritual care concerns: No Meds Home Medications and Allergies Home Medications Medication Instructions Recorded Confirmed Type latanoprost 0.005 % eye drops 1 drp EACH EYE HS 02/11/22 04/15/22 History naproxen sodium 220 mg capsule 220 mg PO Q12H PRN Pain (Scale 04/14/22 04/15/22 History (Aleve) Score 4-6) acetaminophen 500 mg tablet 1,000 mg PO Q6HR PRN Pain (Scale 04/15/22 04/15/22 History Score 1-3) oxycodone 5 mg tablet 5 mg PO Q4HR PRN Pain (Scale Score 04/15/22 04/15/22 History 7-10) aspirin 81 mg tablet,delayed 81 mg PO QAM #30 tabs 04/16/22 Rx release atorvastatin 40 mg tablet 40 mg PO DAILY #30 tabs 04/16/22 Rx meclizine 25 mg tablet 25 mg PO BID PRN Dizziness #60 tabs 04/16/22 Rx Allergies Allergy/AdvReac Type Severity Reaction Status Date / Time methocarbamol Allergy Severe SYNCOPE, Verified 03/03/22 13:44 RESPIRATORY DISTRESS Vital Signs Vital Signs - 24 hr 04/15/22 13:52 04/15/22 14:58 04/15/22 16:00 Temperature 36.6 C Pulse Rate 71 59 L Respiratory Rate 16 Blood Pressure 147/79 H Pulse Oximetry 99 Oxygen Delivery Room Air 04/15/22 18:12 04/15/22 18:15 04/15/22 18:18 Temperature Pulse Rate 65 63 70 Respiratory Rate Blood Pressure 123/64 134/75 144/68 H Pulse Oximetry Oxygen Delivery 04/15/22 21:36 04/15/22 20:00 04/15/22 20:00 Temperature 37.0 C Pulse Rate 90 62 Respiratory Rate 16 Blood Pressure 120/70 Pulse Oximetry 98 Oxygen Delivery Room Air 04/16/22 00:00 04/16/22 04:00 04/16/22 05:40 Temperature 36.7 C Pulse Rate 63 77 60 Respiratory Rate 16 Blood Pressure 122/75 Pulse Oximetry 99 Oxygen Delivery 04/16/22 09:41 04/16/22 08:00 04/16/22 12:00 Temperature Pulse Rate 62 77 Respiratory Rate Blood Pressure Pulse Oximetry Oxygen Delivery Room Air Results Labs CBC & Chem 7: 04/16/22 07:50 04/16/22 07:50
--- NOTE | 2022-04-16 13:36 | WPDNEURCNPN ---
Assessment and Plan Assessment and plan (1) Vertigo: Code(s): R42 - Dizziness and giddiness Status: Acute Plan benign paroxysmal vertigo otherwise evaluation is negative will take Antivert 25 mg or p.r.n. basis keep himself hydrated and also the fall precaution. Consult date: 04/16/22 HPI: Jason Urbano is a 72 year old maleAdmitted to the hospital through the emergency room for the complaints of dizziness particularly explaining that the room was spinning since 11:30 a.m. starting suddenly but with immune and sensation as such worse with walking or turning head to left or right or lying flat in the bed also felt his left lower extremity was asleep and he had some difficulties in speech as well that is he was having difficulty in finding the right words he recently has had left knee replacement about 6 weeks ago and has been taking only pain medication at home as an outpatient, allergic to methocarbamol and past history is consistent with the malignant melanoma and stage III with eggs really Dumont stasis but with no focal neurological deficit. CT scan of the head was obtained which was negative he felt better subsequently with IV fluids he does have ongoing history of recent COVID glaucoma, lymphedema of the right upper extremity, osteoarthritis of knees and overactive bladder as well in addition to peripheral neuropathy due to chemotherapy received in the past his never a smoker never heard substance user never drinks alcohol his outpatient medications included only oxycodone 5 mg q.4 hours p.r.n. subsequent to the knee surgery on initial evaluation is CBC was normal BMP was normal except blood sugar 125 and hepatic enzymes were normal as well MRI of the brain was done which revealed no acute intracranial process or abnormality few scattered small foci of nonspecific white matter hyperintensities were noted normal limits head neck CTA was negative psoas the chest x-ray Review of Systems Review of Systems: negative [facility] Past Medical History Medical History COVID-19 (05/2020) Glaucoma History of malignant melanoma 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 Hyperlipidemia Lymphedema of right upper extremity Due to axillary metastases Obesity Osteoarthritis of knee Overactive bladder Peripheral neuropathy due to chemotherapy Surgical History Surgical History History of arthroscopy of both knees History of carpal tunnel release Right History of circumcision (~2020) History of colonoscopy with polypectomy History of repair of left rotator cuff History of repair of right rotator cuff Status post total left knee replacement (03/03/22) Family History Family History Father Dementia Mother Dementia Cerebrovascular accident Sibling Diabetes mellitus Melanoma Obesity Social History Social History Social History: Code status: Full code Surrogate decision maker: Smoking status: Never smoker Second hand tobacco smoke exposure: No Additional smoking assessment comments: He used to occasionally smoke a cigar when he served in the . Alcohol intake: never Alcohol use details: He binge drank for several years after he served in [email or web address] but has not done so since 1975. Substance use: never Substance use type: does not use Additional living arrangements comments: Lives at home with his of 50 years. 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 Prior to working for [email or web address] he served in the [employer] for 8 years. He served during . Gender identity (if verbalized by the patient): Male Spiritual care concerns: No Meds
== END 2022-04-16 13:48 | disposition home or self-care (01) ==
LOC: ANHED 18:05 → ANH2MED 23:46
PROVIDERS: Nurse Practitioner Family; Admitting Provider Internal Medicine; Emergency Provider Emergency Medicine; PCP Internal Medicine; Visit Provider Nurse Practitioner
DX: R42 Dizziness and giddiness (principal); R47.01 Aphasia; G62.0 Drug-induced polyneuropathy; T45.1X5A Adverse effect of antineoplastic and immunosuppressive drugs, initial encounter; E78.5 Hyperlipidemia, unspecified; E04.1 Nontoxic single thyroid nodule; E66.9 Obesity, unspecified; H40.9 Unspecified glaucoma; Z68.36 Body mass index [BMI] 36.0-36.9, adult; M17.12 Unilateral primary osteoarthritis, left knee; Z96.652 Presence of left artificial knee joint; G62.9 Polyneuropathy, unspecified; C79.2 Secondary malignant neoplasm of skin; I89.0 Lymphedema, not elsewhere classified; R53.1 Weakness; I51.89 Other ill-defined heart diseases; N32.81 Overactive bladder; Z79.01 Long term (current) use of anticoagulants; Z79.1 Long term (current) use of non-steroidal anti-inflammatories (NSAID); Z79.891 Long term (current) use of opiate analgesic; Z79.899 Other long term (current) drug therapy; Z85.9 Personal history of malignant neoplasm, unspecified; Z87.891 Personal history of nicotine dependence; Z92.21 Personal history of antineoplastic chemotherapy; Z86.16 Personal history of COVID-19; Z85.820 Personal history of malignant melanoma of skin; Z80.59 Family history of malignant neoplasm of other urinary tract organ; Z80.8 Family history of malignant neoplasm of other organs or systems
CPT/HCPCS: 36415; 70450; 70496; 70498; 70553; 71045; 80048; 80053; 80061; 82948; 83036; 83735; 84439; 84443; 84484; 85025; 85610; 85730; 93005; 93306; 96361; 96372; 96374; 97161; 97165; 99285; A9270; A9577; G0378; J1650; J2405; J7030; Q9967

== ENCOUNTER 2022-04-18 10:12 | Emergency (ER) | payer MEDICARE, SELFPAY ==
[2022-04-18] VITALS (9 sets, daily range): BP systolic 117–144; BP diastolic 69–95; PULSE 60–83; RESP 10–20; TEMP 36.6; O2SAT 98–100
--- NOTE | ~2022-04-18 | CT_ITS ---
EXAMINATION: CT abdomen pelvis w con DATE: 04/18/2022 12:13 INDICATION: Left lower quadrant abdominal pain. Nausea. TECHNIQUE: Computed tomography (CT) of the abdomen and pelvis was performed with 100 mL Omnipaque 350 intravenous contrast. Automated exposure control and iterative reconstruction technique were employe d. The dose-length product was 1439.02 mGy-cm. COMPARISON: CT abdomen and pelvis 01/15/2022 FINDINGS: The visualized portions of the lung bases demonstrate mild atelectasis. No pleural effusion . The heart size is normal. No pericardial effusion. There are coronary artery calcifications. There is a small sliding hiatal hernia. The liver, gallbladder, spleen, pancreas, adrenal glands, and right kidney are normal. There is a 3.9 cm cyst in left kidney. The prostate is mildly enlarged. There are scattered diverticula in the colon. There is fat stranding around a sigmoid diverticulum, consistent with diverticulitis. There is fat stranding around a diverticulum of the descending colon, consisten t with diverticulitis. There are no dilated loops of bowel. The appendix is normal. There are no path ologically enlarged lymph nodes. There is no free intraperitoneal fluid. There is a left inguinal her padma containing fat. There is severe lower lumbar spondylosis. IMPRESSION: 1. Acute diverticulitis of descending colon and sigmoid colon. No perforation or abscess. Reviewed, dictated and finalized at location A. IMPRESSION: 1. Acute diverticulitis of descending colon and sigmoid colon. No perforation o r abscess.
--- NOTE | 2022-04-18 10:36 | ED.ABDPAIN ---
HPI - Abdominal Pain General Chief Complaint: Abdominal Pain Stated Complaint: abdominal pain Time Seen by Provider: 04/18/22 10:18 Source: patient Mode of arrival: ambulatory Limitations: no limitations History of Present Illness HPI narrative: Patient is a 72 y/o male who presents to the ED with c/o L lower lateral abdominal pain. Patient reports he had an upset stomach last night with nausea and pain in his lower abdomen. He had a bowel movement last night which was normal and symptoms seemed to resolve. No diarrhea, rectal bleeding, or melena. Today, approximately 45 minutes ago, patient stood up from his recliner and had severe pain in his left lateral abdomen. Pain is constant and worse with movement. He has not tried anything for the pain. Denies any current nausea, vomiting, fever, dysuria, hematuria, cough, cold symptoms. Related Data Home Medications Medication Instructions Recorded Confirmed latanoprost 0.005 % eye drops 1 drp EACH EYE HS 02/11/22 04/15/22 naproxen sodium 220 mg capsule 220 mg PO Q12H PRN Pain (Scale 04/14/22 04/15/22 (Aleve) Score 4-6) acetaminophen 500 mg tablet 1,000 mg PO Q6HR PRN Pain (Scale 04/15/22 04/15/22 Score 1-3) oxycodone 5 mg tablet 5 mg PO Q4HR PRN Pain (Scale Score 04/15/22 04/15/22 7-10) Allergies Allergy/AdvReac Type Severity Reaction Status Date / Time methocarbamol Allergy Severe SYNCOPE, Verified 04/18/22 10:23 RESPIRATORY DISTRESS Review of Systems Review of Systems: CONSTITUTIONAL: Denies fever, chills, or sweats. ENT: Denies rhinorrhea, congestion, sore throat. CARDIOVASCULAR: Denies chest pain. RESPIRATORY: Denies cough or dyspnea. GASTROINTESTINAL: Reports pain to left lower lateral abdomen. Denies constipation, rectal bleeding, melena, nausea, vomiting, or diarrhea. GENITOURINARY: Denies dysuria or hematuria. 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 Alcohol intake: never Alcohol use details: He binge drank for several years after he served in [employer] but has not done so since 1975. Substance use: never Substance use type: does not use Additional living arrangements comments: Lives at home with his of 50 years. 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 Prior to working for [employer] he served in the [employer] for 8 years. He served during . Gender identity (if verbalized by the patient): Male Spiritual care concerns: No Exam Narrative: GENERAL: Well appearing, obese, non-toxic,
[2022-04-18 10:39] LABS: Alanine Aminotransferase 29 U/L (6-50); Albumin Level 5.1 g/dL (3.5-5.1); Alkaline Phosphatase 71 U/L (38-126); Anion Gap 13 mmol/L (8-16); Aspartate Amino Transferase 26 U/L (17-59); Basophils Absolute Auto 0.1 K/mm3 (0.0-0.1); Basophils Percent Auto 0.5 % (0.2-1.2); Blood Urea Nitrogen 12 mg/dL (9-20); Carbon Dioxide 25 mmol/L (22-30); Chloride 98 mmol/L (98-107); Eosinophils Absolute Auto 0.1 K/mm3 (0-0.3); Eosinophils Percent Auto 0.5 % (0-4.4); Estimated CRCL calculation 98 ml/min; Estimated Glomerular Filt Rate > 60; Glucose 113 mg/dL (65-110); Hematocrit 44.3 % (42.0-52.0); Immature Granulocyte Absolute 0.04 K/mm3 (0.00-0.031); Immature Granulocyte Percent A 0.3 % (0-0.5); Lipase 71 U/L (23-300); Mean Corpuscular HGB Conc 33.9 g/dl (32-36); Mean Corpuscular Hemoglobin 32.8 pg (26-34); Mean Corpuscular Volume 96.7 fl (80-100); Mean Platelet Volume 9.6 fl (7.4-10.4); Monocytes Absolute Auto 1.4 K/mm3 (0.1-0.6); Monocytes Percent Auto 10.7 % (2.6-8.5); Neutrophils Absolute Auto 8.5 K/mm3 (1.3-6.7); Platelet Count Result 250 k/mm3 (150-375); Potassium 4.1 mmol/L (3.4-5.0); Red Blood Count 4.58 M/mm3 (4.6-6.20); Red Cell Distribution Width 12.2 % (11.5-14.5); Sodium 136 mmol/L (137-145); White Blood Count 13.1 K/mm3 (4.5-10.0)
[2022-04-18 11:01] LABS: Appearance Urine Clear (Clear); Bilirubin Urine Negative (Negative); Blood Urine Negative (Negative); Color Urine Yellow (Yellow); Glucose Urine UA Negative (Negative); Ketones Urine Negative (Negative); Leukocyte Esterase Ur Negative LEU/UL (Negative); Nitrate Urine Negative (Negative); Protein Urine Negative (Negative); Specific Grav Ur 1.015 (1.001-1.035); Urobilinogen Urine 0.2 mg/dL (<2.0); pH Urine 6.5 (5.0-9.0)
[2022-04-18 11:46] LABS: Add Urine Microscopic? NO
== END 2022-04-18 13:18 | disposition home or self-care (01) ==
PROVIDERS: Emergency Provider General Practice; PCP Internal Medicine
DX: K57.32 Diverticulitis of large intestine without perforation or abscess without bleeding (principal); E78.5 Hyperlipidemia, unspecified; M17.10 Unilateral primary osteoarthritis, unspecified knee; N32.81 Overactive bladder; H40.9 Unspecified glaucoma; Z86.16 Personal history of COVID-19; Z85.820 Personal history of malignant melanoma of skin; Z96.652 Presence of left artificial knee joint; Z87.891 Personal history of nicotine dependence; Z92.21 Personal history of antineoplastic chemotherapy
CPT/HCPCS: 36415; 74177; 80053; 81003; 83690; 85025; 96365; 99284; J0131; Q9967

== ENCOUNTER 2022-04-21 11:14 | Outpatient (CLI) | payer MEDICARE, SELFPAY ==
--- NOTE | ~2022-04-21 | US_ITS ---
US thyroid INDICATION: Thyroid nodule TECHNIQUE: Real-time sonographic images of the thyroid gland were obtained. COMPARISON: No prior studies for comparison. FINDINGS: The right thyroid lobe measures 4.5 x 1.9 x 1.6 cm. The left thyroid lobe measures 4.3 x 1 .8 x 1.9 cm. There is normal echotexture and echogenicity throughout the thyroid gland. There is a 4 mm cyst of the right lobe. No solid masses are identified in either lobe.. Normal vascular flow is p resent. IMPRESSION: 1. Small benign 4 mm right thyroid cyst. Otherwise, unremarkable thyroid ultrasound. Reviewed, dictated and finalized at location A. IMPRESSION: 1. Small benign 4 mm right thyroid cyst. Otherwise, unremarkable thyroid ultra sound.
== END 2022-04-21 11:15 | disposition home or self-care (01) ==
PROVIDERS: PCP Internal Medicine; Visit Provider Internal Medicine
DX: E04.1 Nontoxic single thyroid nodule (principal)
CPT/HCPCS: 76536

== ENCOUNTER 2022-06-11 01:44 | Day surgery (SDC) | payer MEDICARE, SELFPAY ==
[2022-06-03 14:09] VITALS: BMI 34.2
[2022-06-11 09:48] VITALS: BP 147/120; PULSE 77; RESP 19; TEMP 36.3; O2SAT 98
[2022-06-11] MEDS: LACTATED RINGERS 1,000 ML 150 ML IV CONT (10:01)
--- NOTE | 2022-06-11 10:10 | PM.HPGS ---
History of Present Illness History of Present Illness Consent: Risks, benefits, and alternatives have been discussed and questions answered. Patient agrees to proceed with procedure. Chief complaint: diverticulitis Narrative: Jason Urbano is a 72 year old male with diverticulitis 1.5 month ago now asymptomatic, last colonoscopy more than 10 years ago Review of Systems Constitutional: Constitutional: Denies headache(s) and Denies weakness Eyes: Eyes: Denies blurry vision ENT: Reports Normal hearing present, Denies headache(s) and Denies neck pain Cardiovascular: Cardiovascular: Denies chest pain and Denies dyspnea Respiratory: Respiratory: Denies dyspnea Gastrointestinal: Gastrointestinal: Reports no additional gastrointestinal complaints Genitourinary: Genitourinary: Denies dysuria Musculoskeletal: Musculoskeletal: Denies neck pain Integumentary/Breasts: Skin/Breast: Denies dry skin Neurologic: Reports Normal hearing present, Denies headache(s) and Denies weakness Psychiatric: Psychiatric: Denies anxiety Endocrine: Endocrine: Denies change in body appearance Hematologic/Lymphatic: Hematologic/Lymphatic: Denies easy bleeding Allergic/Immunologic: Allergic/Immunologic: Denies urticaria PMFSH Past Medical History Medical History COVID-19 (05/2020) Glaucoma History of malignant melanoma 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 Hyperlipidemia Lymphedema of right upper extremity Due to axillary metastases Obesity Osteoarthritis of knee Overactive bladder Peripheral neuropathy due to chemotherapy Surgical History Surgical History History of arthroscopy of both knees History of carpal tunnel release Right History of circumcision (~2020) History of colonoscopy with polypectomy History of repair of left rotator cuff History of repair of right rotator cuff Status post total left knee replacement (03/03/22) Family History Family History Father Dementia Mother Dementia Cerebrovascular accident Sibling Diabetes mellitus Melanoma Obesity Social History Social History Social History: Code status: Full code Surrogate decision maker: Smoking status: Never smoker Second hand tobacco smoke exposure: No Additional smoking assessment comments: He used to occasionally smoke a cigar when he served in the . Alcohol intake: former Alcohol use details: He binge drank for several years after he served in [employer] but has not done so since 1975. Substance use: never Substance use type: does not use Living arrangements: with family Additional living arrangements comments: Lives at home with his of 50 years. 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 Prior to working for [employer] he served in the [employer] for 8 years. He served during . Gender identity (if verbalized by the patient): Male Spiritual care concerns: No Meds Home Medications and Allergies Home Medications Medication Instructions Recorded Confirmed Type latanoprost 0.005 % eye drops 1 drp EACH EYE HS 02/11/22 06/03/22 History naproxen sodium 220 mg capsule 220 mg PO Q12H PRN Pain (Scale 04/14/22 06/03/22 History (Bobby) Score 4-6) aspirin 81 mg tablet,delayed 81 mg PO QAM #30 tabs 04/16/22 06/03/22 Rx release atorvastatin 40 mg tablet 40 mg PO DAILY #90 tabs 05/11/22 06/03/22 Rx Allergies Allergy/AdvReac Type Severity Reaction Status Date / Time methocarbamol Allergy Severe SYNCOPE, Verified 06/11/22 09:47 RESPIRATORY DISTRESS Vital Signs Vital Signs - 24 hr 06/11/22 09:48 Temperature 97.4 F L Pulse Rate 7
--- NOTE | 2022-06-11 10:13 | WPDANESEPPF ---
Anes - Initial Pre Proc Eval Procedure: Operation Date: 06/11/22 11:15 Proposed Procedures p Colonoscopy - Forrest Cummins MD Date/Time: 06/11/22 10:13 Surgeon: Forrest Cummins MD Pre Op Diagnosis: diverticulitis Patient Data Age: 72 Gender: M Height: 1.83 m Weight: 115.8 kg Last Vital Signs Temp 36.3 C L 06/11/22 09:48 Pulse 77 06/11/22 09:48 Resp 19 06/11/22 09:48 BP 147/120 H 06/11/22 09:48 Pulse Ox 98 06/11/22 09:48 O2 Del Method Room Air 06/11/22 09:48 Allergies Allergy/AdvReac Type Severity Reaction Status Date / Time methocarbamol Allergy Severe SYNCOPE, Verified 06/11/22 09:47 RESPIRATORY DISTRESS Home Medications Medication Instructions Recorded Confirmed Type latanoprost 0.005 % eye drops 1 drp EACH EYE HS 02/11/22 06/03/22 History naproxen sodium 220 mg capsule 220 mg PO Q12H PRN Pain (Scale 04/14/22 06/03/22 History (Aleve) Score 4-6) aspirin 81 mg tablet,delayed 81 mg PO QAM #30 tabs 04/16/22 06/03/22 Rx release atorvastatin 40 mg tablet 40 mg PO DAILY #90 tabs 05/11/22 06/03/22 Rx Patient hx anesthesia problems: none Family hx anesthesia problems: none Results Review: All pre-operative results and documents have been reviewed as part of the pre-operative evaluation. 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 Hyperlipidemia Lymphedema of right upper extremity Due to axillary metastases Obesity Osteoarthritis of knee Overactive bladder Peripheral neuropathy due to chemotherapy Surgical History Surgical History History of arthroscopy of both knees History of carpal tunnel release Right History of circumcision (~2020) History of colonoscopy with polypectomy History of repair of left rotator cuff History of repair of right rotator cuff Status post total left knee replacement (03/03/22) Family History Family History Father Dementia Mother Dementia Cerebrovascular accident Sibling Diabetes mellitus Melanoma Obesity Social History Social History Social History: Code status: Full code Surrogate decision maker: Smoking status: Never smoker Second hand tobacco smoke exposure: No Additional smoking assessment comments: He used to occasionally smoke a cigar when he served in the [employer]. Alcohol intake: former Alcohol use details: He binge drank for several years after he served in [employer] but has not done so since 1975. Substance use: never Substance use type: does not use Living arrangements: with family Additional living arrangements comments: Lives at home with his of 50 years. 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 Prior to working for [employer] he served in the [employer] for 8 years. He served during . Gender identity (if verbalized by the patient): Male Spiritual care concerns: No Anes - Eval Final PreProcedure Day of Procedure 06/11/22 10:13 Patient weight: obese Heart: regular rate and rhythm Lungs: clear to auscultation Airway: Mallampati scale class II Neurological: alert and oriented Last oral intake: >/= 8 hours ASA classification: III Emergent: no Anesthetic plan: proceed Anesthesia type and monitoring: general GIVS and standard monitoring Results Review: All pre-operative results and documents have been reviewed as part of the pre-operative evaluation. Informed Consent: The patient's anesthetic plan and its attendant risks and benefits were discussed with the patient/family/POA. Questions were solicited
[2022-06-11 10:34] VITALS: BP 95/43; PULSE 55; RESP 19; O2SAT 99
[2022-06-11 10:44] VITALS: BP 103/68; PULSE 58; RESP 20; O2SAT 99
[2022-06-11 10:54] VITALS: BP 109/82; PULSE 59; RESP 19; O2SAT 100
== END 2022-06-11 11:00 | disposition home or self-care (01) ==
PROVIDERS: PCP Internal Medicine; Visit Provider Internal Medicine Gastroenterology
PROC: 0DJD8ZZ Inspection of Lower Intestinal Tract, Via Natural or Artificial Opening Endoscopic (ICD-10-PCS; CPT 45378; principal; 2022-06-11 11:15)
DX: Z12.11 Encounter for screening for malignant neoplasm of colon (principal); K57.30 Diverticulosis of large intestine without perforation or abscess without bleeding; Z87.19 Personal history of other diseases of the digestive system; K64.8 Other hemorrhoids; Z79.82 Long term (current) use of aspirin; E78.5 Hyperlipidemia, unspecified; Z85.820 Personal history of malignant melanoma of skin; E66.9 Obesity, unspecified; Z68.34 Body mass index [BMI] 34.0-34.9, adult
CPT/HCPCS: G0121; J2704; J7120

== ENCOUNTER 2022-06-15 07:40 | Outpatient (CLI) | payer MEDICARE, SELFPAY | END 2022-06-15 07:41 | disposition home or self-care (01) | LOC: ANHBWCAUD 07:48 | PROVIDERS: PCP Internal Medicine; Visit Provider Otolaryngology | DX: H93.13 Tinnitus, bilateral (principal); H90.3 Sensorineural hearing loss, bilateral | CPT/HCPCS: 92557; 92567 ==

== ENCOUNTER 2022-07-07 07:04 | Outpatient (CLI) | payer MEDICARE, SELFPAY ==
--- NOTE | ~2022-07-07 | MR_ITS ---
EXAMINATION: MR IAC wo/w con DATE: 07/07/2022 08:13 INDICATION: Asymmetric left-sided hearing loss TECHNIQUE: TECHNIQUE: Magnetic resonance imaging (MRI) of the brain, brainstem, and internal auditory canals was performed without and with 20 mL MultiHance intravenous contrast. COMPARISON: Brain MR dated 04/15/2022 and 03/19/2016. FINDINGS: There is no intracranial hemorrhage, acute infarction, or abnormal intracranial mass lesion. Stable appearance of a few small foci of increased T2-weighted signal intensity in the cerebr al white matter which is within normal limits for age. There are no intraparenchymal signal abnormali ties seen on the other pulse sequences. The ventricles are normal in size. The orbits are normal. The re is mild mucosal thickening in the ethmoid sinuses. The internal auditory canals and inner and midd le ears are normal. Chronic small posterior left mastoid effusion. There are no areas of abnormal enh ancement on the postcontrast images. IMPRESSION: 1. No acute intrarenal process or abnormally enhancing brain lesions. 2. Chronic small left mastoid effusion. No abnormalities identified along the internal auditory canal s, inner or middle ears. 3. Stable appearance of a few small scattered foci of nonspecific white matter T2 hyperintensity whic h is within normal limits for age and likely sequela of chronic small vessel ischemic disease. Reviewed, dictated and finalized at location A. OR INSPECTOR IMPRESSION: 1. No acute intrarenal process or abnormally enhancing brain lesions. 2. Chronic small left mastoid effusion. No abnormalities identified along the i nternal auditory canals, inner or middle ears. 3. Stable appearance of a few small scattered foci of nonspecific white matter T2 hyperintensity which is within normal limits for age and likely sequela of c hronic small vessel ischemic disease.
== END 2022-07-07 07:05 | disposition home or self-care (01) ==
PROVIDERS: PCP Internal Medicine; Visit Provider Otolaryngology
DX: H74.8X2 Other specified disorders of left middle ear and mastoid (principal); H90.3 Sensorineural hearing loss, bilateral; R90.82 White matter disease, unspecified
CPT/HCPCS: 70553; A9577

== ENCOUNTER 2023-03-04 12:43 | Outpatient (CLI) | payer MEDICARE, SELFPAY ==
--- NOTE | 2022-03-01 12:42 | PM.IMHP ---
H&P: HPI History of Present Illness Date/Time: 03/01/22 12:42 Chief Complaint: Left knee DJD Narrative: 72-year-old male patient of Dr. Cotton who presents today for a left total knee arthroplasty. Patient has advanced medial compartment osteoarthritis in the left knee. He has had previous scopes done to his knees in the past. He has taken anti-inflammatories on an as-needed basis. He has had cortisone injections in the past none in more than 4-5 months. Patient feels that his knee is giving him enough pain on a daily basis he is fairly miserable and feels this point he is ready to proceed with total knee arthroplasty. Review of Systems Review of Systems: All systems reviewed & are unremarkable except as noted in HPI and below PMFSH Past Medical History Medical History COVID-19 History of malignant melanoma Overactive bladder Social History Social History Smoking status: Never smoker Second hand tobacco smoke exposure: No Additional smoking assessment comments: PT DENIES ALL FORMS OF TOBACCO USE Alcohol intake: never Substance use: never Substance use type: does not use Gender identity (if verbalized by the patient): Male Spiritual care concerns: No Meds Home Medications and Allergies Home Medications Medication Instructions Recorded Confirmed Type ascorbic acid (vitamin C) 1,000 mg 1 g PO DAILY 09/28/21 02/11/22 History tablet cartilage 40 mg-collagen II 10 1 tablet PO DAILY 09/28/21 02/11/22 History mg-boron 5 mg-hyaluronate 3.3 mg tablet ([employer]) cholecalciferol (vitamin D3) 125 125 mcg PO DAILY 09/28/21 02/11/22 History mcg (5,000 unit) capsule coenzyme Q10 200 mg/gram oral 200 mg PO DAILY 09/28/21 02/11/22 History powder (H2Q CoQ10) vpswndncjgsg-peeljond-fkmpgs tablet 1 tablet PO DAILY 09/28/21 02/11/22 History naproxen sodium 220 mg capsule 220 mg PO Q12H PRN Pain 09/28/21 02/11/22 History (Aleve) vit C 250 mg-vit E 90 mg-zinc 40 1 tablet PO DAILY 09/28/21 02/11/22 History mg-copper 1 re-ohbsxj-mzfzgb capsule (PreserVision AREDS-2) zinc acetate 50 mg (zinc) capsule 50 mg PO DAILY 09/28/21 02/11/22 History (Galzin) atorvastatin 20 mg tablet 20 mg PO QAM 02/11/22 02/11/22 History latanoprost 0.005 % eye drops 1 drp HS 02/11/22 02/11/22 History magnesium 200 mg tablet 400 mg PO DAILY 02/11/22 02/11/22 History Allergies Allergy/AdvReac Type Severity Reaction Status Date / Time methocarbamol Allergy Severe SYNCOPE, Verified 02/18/22 07:56 RESPIRATORY DISTRESS nabumetone Allergy Mild RASH Verified 02/18/22 07:56 Exam Narrative: 72-year-old male alert pleasant. He is 5 ft 9 and 262 lb. Left knee range of motion is from 12-90 degrees. He has normal stability in the knee. Hip range of motion is full without discomfort. Stinchfield maneuver is negative. Normal quad strength. He does report some slight numbness sensation to his feet but has intact light touch sensation. 2+ dorsalis pedis absent posterior artery pulse. Trace pretibial edema bilaterally. Walks with a minimal limp. Resp: Auscultation: clear to auscultation bilaterally Cardio: Rate: regular rate Rhythm: regular rhythm Assessment and Plan Assessment and plan (1) Left knee DJD: Code(s): M17.12 - Unilateral primary osteoarthritis, left knee Status: Acute Plan 72-year-old male who has advanced medial compartment osteoarthritis of the left knee. He is having pain on a regular basis which is fairly significant for him. He feels this point is ready to proceed with total knee arthroplasty. Surgical procedure as well as the risks and complications were discussed in detail questions were answered and we will proceed. Patient will avoid is naproxen in the other aspirin ibuprofen products 1 week prior to surgery. He will see his primary care doctor danny
--- NOTE | ~2023-03-04 | CT_ITS ---
EXAMINATION: CT chest abdomen pelvis w con DATE: 03/04/2023 13:22 INDICATION: Malignant melanoma TECHNIQUE: Transaxial computed tomographic images of the chest, abdomen, and pelvis were obtained aft er the administration of 100 cc of Omnipaque 350 intravenous contrast. The dose-length product (DLP) was 1491.75 mGy-cm. Automated exposure control and iterative reconstruction technique were employed. COMPARISON: 04/18/2022 FINDINGS: CHEST CT: The lungs are free of acute opacities. No pleural effusion or pneumothorax. No pathologically enlarge d thoracic lymph nodes are identified. The heart size is normal. Changes of right axillary and subpec samantha there is calcified coronary artery atherosclerosis. Lymph node dissection are noted. There is m ild thoracic spondylosis. ABDOMEN/PELVIS CT: The liver, spleen, pancreas, gallbladder, and adrenal glands are normal. The right kidney is unremark able. There is a 4.1 cm cyst of the left kidney. No pathologically enlarged abdominal or pelvic lymph nodes are identified. No free intraperitoneal gas or evidence of bowel obstruction. Colonic divertic ulosis is present without evidence of diverticulitis. The appendix is normal. There are left inguinal and umbilical hernias containing fat. There is severe lower lumbar spondylosis. IMPRESSION: 1. No evidence of metastatic disease in the chest, abdomen, or pelvis. Reviewed, dictated and finalized at location F.
[2023-03-04 13:15] LABS: Estimated Glomerular Filt Rate > 60
== END 2023-03-04 12:44 | disposition home or self-care (01) ==
PROVIDERS: PCP Family Medicine; Visit Provider Internal Medicine Medical Oncology
DX: C43.59 Malignant melanoma of other part of trunk (principal)
CPT/HCPCS: 71260; 74177; Q9967

== ENCOUNTER 2024-03-02 08:35 | Outpatient (CLI) | payer MEDICARE, SELFPAY ==
--- NOTE | ~2024-03-02 | CT_ITS ---
EXAMINATION: CT chest abdomen pelvis w con DATE: 03/02/2024 09:20 INDICATION: Malignant melanoma of torso. TECHNIQUE: Computed tomography (CT) of the chest, abdomen, and pelvis was performed with 100 mL Omnip aque 350 intravenous contrast. Automated exposure control and iterative reconstruction technique were employed. The dose-length product was 1616.50 mGy-cm. COMPARISON: CT 03/04/2023 FINDINGS: CHEST CT: There is mild dependent atelectasis bilaterally. No pleural effusion. The heart size is normal. There are coronary artery calcifications. No pericardial effusion. There are surgical clips in the right a xilla. There are no pathologically enlarged lymph nodes. There is mild bilateral gynecomastia. There is mild thoracic spondylosis. ABDOMEN/PELVIS CT: The liver, gallbladder, spleen, pancreas, adrenal glands, and right kidney are normal. There is a 4.3 cm cyst in left kidney. There are scattered diverticula in the colon. There is fat stranding around the sigmoid colon, consistent with diverticulitis. The appendix is normal. There are no pathologicall y enlarged lymph nodes. There is no free intraperitoneal fluid. There is a left inguinal hernia conta ining fat. There is severe lower lumbar spondylosis. IMPRESSION: 1. No evidence of metastatic disease. 2. Sigmoid diverticulitis. No perforation or abscess. Reviewed, dictated and finalized at location A.
[2024-03-02 09:11] LABS: Estimated Glomerular Filt Rate > 60
== END 2024-03-02 08:36 | disposition home or self-care (01) ==
PROVIDERS: PCP Family Medicine; Visit Provider Internal Medicine Medical Oncology
DX: K57.32 Diverticulitis of large intestine without perforation or abscess without bleeding (principal); C43.59 Malignant melanoma of other part of trunk
CPT/HCPCS: 71260; 74177; Q9967

== ENCOUNTER 2025-03-04 06:35 | Outpatient (CLI) | payer MEDICARE, SELFPAY ==
--- NOTE | ~2025-03-04 | CT_ITS ---
Clinical Indication: Malignant melanoma CT Scan of the Chest, Abdomen, and Pelvis with Contrast: Technique: Contiguous sections were acquired throughout the chest, abdomen, and pelvis after intraven ous administration of 100 cc of Omnipaque 350. Dose reduction technique was used on this scan by walt vergaraing automated exposure control and iterative reconstruction technique. The dose-length product (DL P) was 1603.52 mGy-cm. Comparison: 03/02/2024 Findings: There is no evidence of any significant mediastinal, hilar or axillary lymphadenopathy. The mediastin al soft tissues and vascular structures appear normal. There is no evidence of pleural or pericardial effusion. The lungs are clear. No pulmonary nodules or infiltrates are noted. The liver, spleen, pancreas, gallbladder, adrenals and kidneys are within normal limits. No evidence of aortic aneurysm. No lymphadenopathy. No bowel obstruction or bowel wall thickening. There is no evidence to suggest acute appendicitis. Urinary bladder is unremarkable. No pelvic mass seen. No ascites. Impression: No significant abnormalities seen. No evidence of active malignancy or metastatic disease. Reviewed, dictated and finalized at [facility]. Impression: No significant abnormalities seen. No evidence of active malignancy or metastat ic disease.
--- OUTSIDE RECORDS SUMMARY | 2025-03-04 06:39 | XMS_ITS | Clinical Summary ---
Author Organization [facility] Address [address] [place] [address] Care Team Providers Care Bobbin Doffer Name Role Phone Yury Stanley L Primary Care Provider [phone] Source Comments [facility],non-owned Affiliates and Associated Physician Practices is amultiple site organization consisting of ambulatory clinics and hospital sitesin [place], [place] and [place]. This disclosure is being madepursuant to the Care Everywhere program and may not contain all information available regarding this patient. Last updated 18.[facility] Allergies Active Allergy Reactions Criticality Noted Date Comments Ciprofloxacin Fever 07/21/2022 Methocarbamol Other High 03/08/2012 This med and naproxen together is has bad effect on the patient. Stops breathing, This med and naproxen together is has bad effect on the patient. Stops breathing Oxycodone Anaphylaxis High 07/21/2022 Medications * Be aware that medications may not be up to date on this document. Alwaysverify current medications with the patient. bimatoprost (Lumigan) 0.01 % ophth solution Instill 1 (one) drop into both eyes once daily Active oxybutynin CR 24hr (DITROPAN-XL) 10 MG tablet Take 1 tablet by mouth once daily Active Multiple Vitamins-Minera ls (MULTIVITAMIN ADULT PO) Take 1 tablet by mouth once daily Active amoxicillin (Amoxil) 500 MG tablet TAKE 4 TABLETS BY MOUTH 1 HOUR PRIOR TO APPT 2 Active atorvastatin (Lipitor) 20 MG tablet atorvastatin 20 mg tablet TAKE 1 TABLET BY MOUTH DAILY 2 Active celecoxib (CeleBREX) 200 MG capsule celecoxib 200 mg capsule TAKE 1 CAPSULE BY MOUTH DAILY AT 8 AM Active Active Problems Problem Noted Date Diagnosed Date Polyneuropathy 05/02/2013 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, 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 Malignant melanoma of skin 04/12/2012 Malignant melanoma of other part of trunk 2011 Immunizations Immunization Administration Dates Next Due INFLUENZA VACCINE 06/01/2020 Family History Medical History Relation Name Comments None Known Brother 1 Status: Alive None Known Brother 2 Status: Alive None Known Daughter 1 Status: Alive None Known Daughter 2 Status: Alive Alzheimer's Disease Father Status: None Known Maternal Grandfather Status: None Known Maternal Grandmother Status: Alzheimer's Disease Mother Status: None Known Paternal Grandfather Status: None Known Paternal Grandmother Status: None Known Sister 1 Status: Alive None Known Sister 2 Status: Alive None Known Sister 3 Status: Alive None Known Son Status: Alive Relation Name Status Comments Brother 1 Brother 2 Daughter 1 Daughter 2 Father Maternal Grandfather Maternal Grandmother Mother Paternal Grandfather Paternal Grandmother Sister 1 Sister 2 Sister 3 Son Social History Tobacco Use Types Packs/Day Years Used Date Smoking Tobacco: Never Smokeless Tobacco: Never Tobacco Cessation:Counseling Given: No Alcohol Use Standard Drinks/Week Comments No 0 (1 standard drink = 0.6 oz pur e alcohol) Sex and Gender Information Value Date Recorded Sex Assigned at Male 07/01/2020 10:44 AM TABLE KEEPER Legal Sex Male 5:25 PM TABLE KEEPER Gender Identity Male 07/01/2020 10:44 AM TABLE KEEPER Sexual Orientation Straight 07/01/2020 10 :44 AM TABLE KEEPER Last Filed Vital Signs Vital Sign Reading Time Taken Comments Blood Pressure 126/75 07/21/2022 9:26 AM TABLE KEEPER Pulse 64 07/21/2022 9:26 AM TABLE KEEPER Temperature 36.9 C (98.4 F) 07/21/2022 9:26 AM TABLE KEEPER Respiratory Rate 20 07/21/2020 1:21 PM TABLE KEEPER Oxygen Saturation 97% 07/21/2022 9:26 AM TABLE KEEPER Inhaled Oxygen Concentration - - Weight 119.7 kg (264 lb) 07/21/2022 9:26 AM TABLE KEEPER Height 182.9 cm (6') 07/21/2022 9:26 AM TABLE KEEPER Body Mass Index 35.8 07/21/2022 9:26 AM TABLE KEEPER Plan of Treatment Health Maintenance Due Date Last Done Comments COLOGUARD (AGES 45-75) - COL ON CA SCREENING 1952 COLON MONITORING 1952 COLONOSCOPY - COLON CA SCREENING 1952 CT COLONOGRAPHY - COLON CA SCREENING 1952 Colorectal Cancer Screening 1952 FIT - COLON CA SCREENING 1952 FLEX SIG - COLON CA SCREENING 1950 MEDICARE AWV 12 MONTHS 1952 HEPATITIS C SCREENING 01/15/1970 DTAP/TDAP/TD VACCINES (1 - Tdap) 01/19/1971 PNEUMOCOCCAL VACCINE 50+ (1 of 2 - PCV) 01/19/1971 ZOSTER VACCINE (1 of 2) 01/19/1971 Respiratory Syncytial Virus (RSV) Vaccine Pt: or over 60 yrs (1 - Risk 60-74 years 1-dose series) 2012 COVID-19 VACCINE (3 - Pfizer risk series) 11/19/2020 10/22/2020, 09/30/2020 SCREENING FOR DIABETES 07/22/2021 2, 03/08/2012 DEPRESSION SCREENING 08/01/2024 INFLUENZA VACCINE (#1) 2025 0, 06/01/2020 HEPATITIS B VACCINE Aged Out No longe r eligible based on patient's age to complete this topic HIB VACCINE Aged Out No longer eligi ble based on patient's age to complete this topic HPV VACCINE Aged Out No longer eligi ble based on patient's age to complete this topic MENINGOCOCCAL (Group B) VACCINE SHARED DECISION-MAKING Aged Out No longer eligible based on patient's age to complete this topic MENINGOCOCCAL GROUPS A/C/Y/W VACCINE Aged Out No longer eligible b ased on patient's age to complete this topic Procedures Procedure Name Priority Date/Time Associated Diagnosis Comments BASIC METABOLIC PANEL (CALCIUM TOTAL) Routine 04/12/2012 2:35 AM CDT from Last 3 Months or Most Recently Relevant to Health Maintenance Results * (ABNORMAL) BASIC METABOLIC PANEL (CALCIUM TOTAL) (04/12/2012 2:35 AM CDT) BUN 12 7 - 26 mg/dL [facility] Creatinine 0.9 0.6 - 1.2 mg/dL [facility] eGFR by MDRD > 60 ML/MIN [facility] Comment: Chronic kidney disease: <60 ml/min Kidney failure: <15 ml/min Based on BSA of 1.73m2. Sodium 138 136 - 145 mmol/L [facility] Potassium 4.2 3.5 - 4.5 mmol/L [facility] Chloride 107 98 - 107 mmol/L [facility] CO2 21(L) 22 - 29 mmol/L [facility] Glucose 105 70 - 115 mg/dL [facility] Calcium 8.4 8.4 - 10.2 mg/dL [facility] Anion Gap 14 8 - 18 [facility] BUN/Creatinine Ratio 13 7 - 23 [facility] Osmolality Calculation 271 270 - 300 mOsm/kg [facility] Venous blood specimen (specimen) 04/12/2012 2:35 AM CDT 04/12/2012 3:19 AM CDT Wesley Rosa MD LAB - CHEMISTRY ORDERABLES Final Result Performing Organization Address City/State/[facility] Co de Phone Number [address] [phone] from Last 3 Months or Most Recently Relevant to Health Maintenance Insurance MEDICARE ANTHEM MEDICARE [facility] Care Teams Bobbin Doffer Relationship Specialty Start Date End Date Stanley Cotton DO [address] [place] [phone] PCP - General 07/30/20
--- OUTSIDE RECORDS SUMMARY | 2025-03-04 06:39 | XMS_ITS | Encounter Summary ---
Author Organization [facility] Address [address] [place] [address] Care Team Providers Care Training And Development Rep Name Role Phone Stanley Cototn Pebbles MCCLURE Primary Care Provider Encounter Details Date Type Department Care Team (Late st Contact Info) Description 10/07/2023 Lab Requisition [facility] - [facility]erm[facility] Lab [address] [facility] [facility] [place] [address] Moustapha Flores MD [address] [place] [address] Social History Tobacco Use Types Packs/Day Years Used Date Smoking Tobacco: Never Smokeless Tobacco: Never Alcohol Use Standard Drinks/Week Comments No 0 (1 standard drink = 0.6 oz pur e alcohol) Sex and Gender Information Value Date Recorded Sex Assigned at Male 07/01/2020 10:44 AM YEAST STACKER Legal Sex Male 5:25 PM YEAST STACKER Gender Identity Male 07/01/2020 10:44 AM YEAST STACKER Sexual Orientation Straight 07/01/2020 10 :44 AM YEAST STACKER documented as of this encounter Plan of Treatment Not on file documented as of this encounter Procedures Procedure Name Priority Date/Time Associated Diagnosis Comments DERMATOPATHOLOGY Routine 10/06/2023 3:3 3 AM YEAST STACKER documented in this encounter Results * DERMATOPATHOLOGY (10/06/2023 3:33 AM YEAST STACKER) Case Report Dermatopathology Report Case: [id number] Authorizing Provider: Moustapha Flores MD Collected: 10/06/2023 03:33 AM Ordering Location: [facility] - Received: 10/07/2023 08:31 AM DermPath Lab Pathologist: Jemima Calderon MD Specimen: Skin, left lat back 12:48 PM CDT DERMATOPATHOLOGY LABORATORY Final Diagnosis Specimen A. SKIN, left lat back: SEBORRHEIC KERATOSIS, IRRITATED AND INFLAMED (L82.0) 12:48 PM CDT DERMATOPATHOLOGY LABORATORY at 1248 CDT Clinical History ISK vs SCC 12:48 PM CDT DERMATOPATHOLOGY LABORATORY Gross Description Specimen A: Received is one formalin filled container labeled with the patient's name and designated left lat back. The specimen consists of a shave biopsy measuring 18x8x2 mm. Jar 0. 12:48 PM CDT DERMATOPATHOLOGY LABORATORY Microscopic Description Specimen A. SKIN, left lat back: Sections show acanthosis, papillomatosis, hyperkeratosis, and squamous eddies. There is a lymphohistiocytic infiltrate within the papillary dermis. 12:48 PM CDT DERMATOPATHOLOGY LABORATORY Disclaimer An external and internal positive and negative controls are appropriate for the histochemical, immunohistochemical and immunofluorescence stain(s) in this case (if any), except where stated explicitly. The performance characteristics of the stain(s) cited in this report were developed and its performance characteristic determined by the Dermatopathology Laboratory at [facility], directed by Dr. Jean-Paul Nuñez. These tests need not be, and therefore are not, approved by the [place] Food and Drug Administration. The tests are used for clinical purposes. Billing Codes Specimen Charges Stain Charges 78959 1 12:48 PM CDT DERMATOPATHOLOGY LABORATORY Embedded Images 12:48 PM CDT DERMATOPATHOLOGY LABORATORY Pathology/Cytolo gy TISSUE SPECIMEN FROM SKIN / Unknown 10/06/2023 3:33 AM YEAST STACKER 10/07/2023 8:31 AM YEAST STACKER us Moustapha Flores MD LAB - PATHOLOGY/CYTOLOGY ORDERAB LES Final Result DERMATOPATHOLOGY LABORATORY [facility] - Department of Dermatology [address] [phone] documented in this encounter Visit Diagnoses Not on filedocumented in this encounter Care Teams Training And Development Rep Relationship Specialty Start Date End Date Stanley Cotton DO [address] [place] [address] PCP - General 07/30/20 documented as of this encounter
--- OUTSIDE RECORDS SUMMARY | 2025-03-04 06:39 | XMS_ITS ---
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 Past Treatment and Therapy Plans No past plan information found. Lifetime Dose Tracking * Chemical Lifetime Dose Automatic Entry Manual Entr y Dose Length Product 4,836 mGy-cm 4,836 mGy-cm 0 mGy-cm
[2025-03-04 07:30] LABS: Estimated Glomerular Filt Rate > 60
== END 2025-03-04 06:36 | disposition home or self-care (01) ==
PROVIDERS: PCP Family Medicine; Visit Provider Internal Medicine Medical Oncology
DX: C43.59 Malignant melanoma of other part of trunk (principal)
CPT/HCPCS: 71260; 74177; Q9967

== ENCOUNTER 2025-05-30 08:48 | Outpatient (CLI) | payer MEDICARE, SELFPAY ==
--- NOTE | 2025-05-30 09:00 | ECG_ITS ---
Test Date: 2025-05-30 09:09:55 Measurements Intervals Callahan Rate: 53 P: 46 NE: 252 QRS: 32 QRSD: 96 T: 24 QT: 410 QTc: 387 Interpretive Statements SINUS BRADYCARDIA WITH FIRST DEGREE AV BLOCK INCOMPLETE RIGHT BUNDLE BRANCH BLOCK BORDERLINE ECG No previous ECG available for comparison Electronically Signed On 05-30-2025 09:10:50 CDT by El Dumont D.O.
--- OUTSIDE RECORDS SUMMARY | 2025-05-30 09:13 | XMS_ITS | Clinical Summary ---
Author Organization [facility] Address [address] [facility] [facility] [place] [address] Care Team Providers Care Clothing Manager Name Role Phone Nico Cottondidio Rogel Primary Care Provider [phone] Source Comments [facility],non-owned Affiliates and Associated Physician Practices is amultiple site organization consisting of ambulatory clinics and hospital sitesin [place], [place], [place] and [place]. This disclosure is being madepursuant to the Care Everywhere program and may not contain all information available regarding this patient. Last updated 18.[facility] Allergies Active Allergy Reactions Criticality Noted Date [...] Sex Assigned at Male 07/01/2020 10:44 AM LEAD PRESSMAN Legal Sex Male 5:25 PM LEAD PRESSMAN Gender Identity Male 07/01/2020 10:44 AM LEAD PRESSMAN Sexual Orientation Straight 07/01/2020 10 :44 AM LEAD PRESSMAN Last Filed Vital Signs Vital Sign Reading Time Taken Comments Blood Pressure 126/75 07/21/2022 9:26 AM LEAD PRESSMAN Pulse 64 07/21/2022 9:26 AM LEAD PRESSMAN Temperature 36.9 C (98.4 F) 07/21/2022 9:26 AM LEAD PRESSMAN Respiratory Rate 20 07/21/2020 1:21 PM LEAD PRESSMAN Oxygen Saturation 97% 07/21/2022 9:26 AM LEAD PRESSMAN Inhaled Oxygen Concentration - - Weight 119.7 kg (264 lb) 07/21/2022 9:26 AM LEAD PRESSMAN Height 182.9 cm (6') 07/21/2022 9:26 AM LEAD PRESSMAN Body Mass Index 35.8 07/21/2022 9:26 AM LEAD PRESSMAN Plan of Treatment Health Maintenance Due Date [...] 01/19/1971 ZOSTER VACCINE (1 of 2) 01/19/1971 SCREENING FOR DIABETES 07/22/2021 2, 03/08/2012 DEPRESSION SCREENING 08/01/2024 COVID-19 VACCINE (3 - 2024-2 6 season) 2025 10/22/2020, 09/30/2020 INFLUENZA VACCINE (#1) 2025 0, 06/01/2020 Respiratory Syncytial Virus (RSV) Vaccine Pt: or over 60 yrs (1 - 1-dose 75+ series) 01/19/2027 HEPATITIS B VACCINE Aged Out No longe [...] CDT) BUN 12 7 - 26 mg/dL [facility] Creatinine 0.9 0.6 - 1.2 mg/dL [facility] eGFR by MDRD > 60 ML/MIN [facility] Comment: Chronic kidney disease: <60 ml/min Kidney failure: <15 ml/min Based on BSA of 1.73m2. Sodium 138 136 - 145 mmol/L [facility] Potassium 4.2 3.5 - 4.5 mmol/L [facility] Chloride 107 98 - 107 mmol/L [facility] CO2 21(L) 22 - 29 mmol/L [facility] Glucose 105 70 - 115 mg/dL [facility] Calcium 8.4 8.4 - 10.2 mg/dL [facility] Anion Gap 14 8 - 18 [facility] BUN/Creatinine Ratio 13 7 - 23 [facility] Osmolality Calculation 271 270 - 300 mOsm/kg [facility] Venous blood specimen (specimen) 04/12/2012 2:35 AM CDT 04/12/2012 3:19 AM CDT Wesley Rosa MD LAB - CHEMISTRY ORDERABLES Final Result Performing Organization Address [facility]/State/ZIP Co de Phone Number [address] [phone] from Last 3 Months or Most Recently Relevant to Health Maintenance Insurance MEDICARE ANTHEM MEDICARE [facility] Care Teams Clothing Manager Relationship Specialty Start Date End Date Stanley Cotton DO [address] [place] [phone] PCP - General 07/30/20
--- OUTSIDE RECORDS SUMMARY | 2025-05-30 09:13 | XMS_ITS | Encounter Summary ---
Author Organization [facility] Address [address] [place] [address] Care Team Providers Care Carbon Sequestration Plant Manager Name Role Phone Stanley Cotton Pebbles MCCLURE Primary Care Provider [phone] Encounter Details Date Type Department Care Team (Late st Contact Info) Description 10/07/2023 Lab Requisition [facility] Lab [address] [place] [address] Moustapha Flores MD [address] [place] [address] Social History Tobacco Use Types Packs/Day Years Used Date Smoking Tobacco: Never Smokeless Tobacco: Never Alcohol Use Standard Drinks/Week Comments No 0 (1 standard drink = 0.6 oz pur e alcohol) Sex and Gender Information Value Date Recorded Sex Assigned at Male 07/01/2020 10:44 AM LBD TEACHER Legal Sex Male 5:25 PM LBD TEACHER Gender Identity Male 07/01/2020 10:44 AM LBD TEACHER Sexual Orientation Straight 07/01/2020 10 :44 AM LBD TEACHER documented as of this encounter Plan of Treatment Not on file documented as of this encounter Procedures Procedure Name Priority Date/Time Associated Diagnosis Comments DERMATOPATHOLOGY Routine 10/06/2023 3:33 AM LBD TEACHER documented in this encounter Results * DERMATOPATHOLOGY (10/06/2023 3:33 AM LBD TEACHER) Case Report Dermatopathology Report Case: [id number] Authorizing Provider: Moustapha Flores MD Collected: 10/06/2023 03:33 AM Ordering Location: [facility] - Received: 10/07/2023 08:31 AM [...] characteristic determined by the Dermatopathology Laboratory at [facility], directed by Dr. Jean-Paul Nuñez. These tests need not be, and therefore are not, approved by the [place] Food and Drug Administration. The tests are used for clinical purposes. Billing Codes Specimen Charges Stain Charges 54527 1 12:48 PM CDT DERMATOPATHOLOGY LABORATORY Embedded Images 12:48 PM CDT DERMATOPATHOLOGY LABORATORY Pathology/Cytolo gy TISSUE SPECIMEN FROM SKIN / Unknown 10/06/2023 3:33 AM LBD TEACHER 10/07/2023 8:31 AM LBD TEACHER us Moustapha Flores MD LAB - PATHOLOGY/CYTOLOGY ORDERAB LES Final Result DERMATOPATHOLOGY LABORATORY [facility] - Department of Dermatology [address] [phone] documented in this encounter Visit Diagnoses Not on filedocumented in this encounter Care Teams Carbon Sequestration Plant Manager Relationship Specialty Start Date End Date Stanley Cotton DO [address] [place] [address] PCP - General 07/30/20 documented as of this encounter
--- OUTSIDE RECORDS SUMMARY | 2025-05-30 09:13 | XMS_ITS ---
Author Organization [facility] Address [address] [place] [address] Care Team Providers Care Instruments Sales Representative Name Role Phone Stanley Cotton DO Primary Care Provider [phone] Active Problems Problem Noted Date Diagnosed Date [...]
--- OUTSIDE RECORDS SUMMARY | 2025-05-30 09:14 | XMS_ITS | Clinical Summary ---
Author Organization [facility] Address [address] [place] [address] Care Team Providers Care Pharmaceutical Physician Name Role Phone Earle Eastman MD Primary Care Provider [phone] Reuben Haney MD Unavailable Allergies Active Allergy Reactions Criticality Noted Date Comments Ciprofloxacin Rash,Fever Medium 07/21/2022 Methocarbamol Other (See comments),Shortness of breath High 03/08/2012 This med and naproxen together is has bad effect on the patient. Stops breathing, This med and naproxen together is has bad effect on the patient. 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 Encounters Date Type Department Care Team Description 04/30/2025 Telephone [facility] Medicine Physicians [facility] [address] [place] [address] [address] [place] [address] Celeste Prater CMA 03/08/2025 8:45 AM CDT Office Visit [facility] [address] [place] [address] [address] [place] [address] Luis F Perla, DO 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) (Primary Dx) 03/06/2025 [facility] [address] [place] [address] [address] [place] [address] Mimi Snell MD 03/04/2025 - 03/04/2025 11:59 PM CDT Hospital Encounter [facility] [address] [place] [address] Discharge Disposition: Discharge to home or self care 03/04/2025 Orders Only [facility] Medicine Physicians [facility] [facility] [address] [place] [address] Mimi Snell MD from Last 3 Months Immunizations Immunization Administration Dates Next Due Influenza, Unspecified 06/01/2020 Surgical History Surgery Date Site/Laterality Comments REPLACEMENT TOTAL KNEE Left Social History Tobacco Use Types Packs/Day Years Used Date Smoking Tobacco: Never Smokeless Tobacco: Never AUDIT-C Answer Date Recorded Q1: How often do you have a drink containing alcohol? Never 03/08/2025 Q2: How many drinks containi ng alcohol do you have on a typical day when you are drinking? Patient does not drink Q3: How often do you have si x or more drinks on one occasion? Never 03/08/2025 Sex and Gender Information Value Date Recorded Sex Assigned at Not on file Legal Sex Male 9:41 AM [employer] Gender Identity Male 01/24/2021 10:21 AM CDT Sexual Orientation Straight 01/24/2021 10 :21 AM CDT Obstetrics History Last Filed Vital Signs Vital Sign Reading Time Taken Comments Blood Pressure 129/81 03/08/2025 8:58 AM CDT Pulse 64 03/08/2025 8:58 AM CDT Temperature 36.6 C (97.9 F) 03/08/2025 8:58 AM CDT Respiratory Rate 18 03/08/2025 8:58 AM CDT Oxygen Saturation 97% 03/08/2025 8:5 8 AM CDT Inhaled Oxygen Concentration - - Weight 118.8 kg (261 lb 14. 5 oz) 03/08/2025 8:58 AM CDT with shoes Height 174.8 cm (5' 8.82) 03/08/2025 8 :58 AM CDT Body Mass Index 38.88 03/08/2025 8:58 AM CDT Plan of Treatment Health Maintenance Due Date Last Done Comments Colon Cancer Screening-Colonoscopy 1950 Depression Screening 1950 Fall Risk Assessment 1950 Hepatitis C Screening 1950 DTaP/Tdap/Td Vaccine (1 - Tdap) 01/19/1963 Hepatitis B Screening 01/19/1970 Pneumococcal vaccine 65+ (1 of 2 - PCV) 01/19/1971 Zoster Vaccine (1 of 2) 01/19/1971 Well Visit 65+ 01/19/2017 Influenza Vaccine (#1) 2025 06/01/2020 Procedures Procedure Name Priority Date/Time Associated Diagnosis Comments CREATININE WITH GFR Routine 03/04/2025 3:[address] CHEST ABDOMEN PELVIS W CONTRAST Schedule Routine, Read Routine (OP Routine) 03/04/2025 3:[address] BODY OUTSIDE REFERENCE Routine 03/04/2025 12:00 AM CDT from Last 3 Months Results * Creatinine with GFR (03/04/2025 3:36 PM CDT) us Historical Provider LAB URINE ORDERABLES Era l Result * CT Chest Abdomen Pelvis W Contrast (03/04/2025 3:00 PM CDT) Anatomical Region Laterality Modality Body N/A Computed Tomogra phy us Historical Provider IMG CT PROCEDURES Final R esult * CT Body Outside Reference (03/04/2025 12:00 AM CDT) Narrative [email or web address] - 03/12/2025 2:45 PM CDT This order has been auto-finalized and does not contain a result. us Provider Transcribed Order IMG CT PROCEDURES Fin al Result Performing Organization Address City/State/[facility] de Phone Number RAD_[email or web address] from Last 3 Months Insurance MEDICARE BLUE CROSS MEDICARE SUPPLEMENT MEDICARE [facility] TRADITIONAL Member Subscriber Plan / Payer (Ef fective 2022-) Name:Jason Urbano Member ID:Not on file Relation to Subscriber:Self Name:Sundeep Jason Canas Subscriber ID:Not on file Payer ID:[id number] (NAIC) Group ID:Not on file Type:PATRICIA WEISS Address: [facility] [address] [id number] Care Teams Pharmaceutical Physician Relationship Specialty Start Date End Date Earle Eastman MD [address] [place] [address] PCP - General Family Practice 03/08/25 Reuben Haney MD [address] [address] Referring Physician Dermatology 03/08/25
== END 2025-05-30 08:49 | disposition home or self-care (01) ==
PROVIDERS: PCP Family Medicine; Visit Provider Nurse Anesthetist, Certified Registered
DX: Z01.818 Encounter for other preprocedural examination (principal); I44.0 Atrioventricular block, first degree; I45.10 Unspecified right bundle-branch block
CPT/HCPCS: 93005